=== PATIENT | male | born 1970 ===

== ENCOUNTER 2020-02-07 07:02 | Outpatient (REF) | payer OTHER, SELFPAY ==
[2020-02-07 07:23] LABS: COVID-19 Test Negative (Negative)
== END 2020-02-07 07:03 | disposition home or self-care (01) ==
LOC: HO.LAB 07:02
PROVIDERS: Visit Provider Internal Medicine
DX: Z20.828 Contact with and (suspected) exposure to other viral communicable diseases (principal)
CPT/HCPCS: 87635

== ENCOUNTER 2020-03-18 07:04 | Outpatient (REF) | payer OTHER, SELFPAY ==
[2020-03-18 07:25] LABS: COVID-19 Test Negative (Negative); IDNOW Serial# 55D5AD1C
== END 2020-03-18 07:05 | disposition home or self-care (01) ==
LOC: HO.EMPCOV 07:04
PROVIDERS: Visit Provider Internal Medicine
DX: Z20.828 Contact with and (suspected) exposure to other viral communicable diseases (principal)
CPT/HCPCS: 87635; C9803

== ENCOUNTER 2020-03-21 07:03 | Outpatient (REF) | payer OTHER, SELFPAY ==
[2020-03-21 08:48] LABS: COVID-19 Test Negative (Negative)
== END 2020-03-21 07:04 | disposition home or self-care (01) ==
LOC: HO.EMPCOV 07:03
PROVIDERS: Visit Provider Internal Medicine
DX: Z20.828 Contact with and (suspected) exposure to other viral communicable diseases (principal)
CPT/HCPCS: 87635; C9803

== ENCOUNTER 2020-03-26 06:55 | Outpatient (REF) | payer OTHER, SELFPAY ==
[2020-03-26 07:39] LABS: COVID-19 Test Negative (Negative); IDNOW Serial# 55D5AD1C
== END 2020-03-26 06:56 | disposition home or self-care (01) ==
LOC: HO.EMPCOV 06:55
PROVIDERS: Visit Provider Internal Medicine
DX: Z20.828 Contact with and (suspected) exposure to other viral communicable diseases (principal)
CPT/HCPCS: 87635; C9803

== ENCOUNTER 2020-08-14 06:13 | Outpatient (REF) | payer OTHER, SELFPAY ==
[2020-08-14 08:14] LABS: MANUAL DIFF FLAG NO
[2020-08-14 08:26] LABS: Basophils Absolute Auto 0.1 X10*3/uL (0.0-0.2); Basophils Percent Auto 0.6 % (0-2); Eosinophils Absolute Auto 0.2 X10*3/uL (0.0-0.4); Eosinophils Percent Auto 2.2 % (0-4); Hematocrit 43.5 % (42-52); Hemoglobin 14.3 g/dl (14.0-18.0); Imm Gran Abs Auto 0.03 X10*3/uL (0.00-0.03); Imm Gran Pct Auto 0.4 % (0.0-0.4); Lymphocytes Absolute Auto 1.9 X10*3/uL (1.2-4.9); Lymphocytes Percent Auto 23.7 % (20-40); Mean Corpuscular HGB Conc 32.9 g/dl (31.0-36.0); Mean Corpuscular Hemoglobin 29.4 pg (27.0-33.0); Mean Corpuscular Volume 89.5 fL (80-98); Mean Platelet Volume 9.6 fL (9.4-12.4); Monocytes Absolute Auto 0.6 X10*3/uL (0.1-1.2); Monocytes Percent Auto 7.6 % (2-11); Neutrophils Absolute Auto 5.3 X10*3/uL (2.0-8.3); Neutrophils Percent Auto 65.5 % (45-73); Platelet Count 278 X10*3/uL (160-400); Red Blood Count 4.86 X10*6/uL (4.60-5.80); Red Cell Distribution Width 12.3 % (11.0-16.0); White Blood Count 8.2 X10*3/uL (4.8-10.8)
[2020-08-14 08:41] LABS: Alanine Aminotransferase 26 U/L (0-40); Albumin Level 4.3 g/dL (3.5-5.0); Alkaline Phosphatase 100 U/L (39-117); Anion Gap 15 (12-20); Aspartate Amino Transferase 18 U/L (5-37); Blood Urea Nitrogen 20 mg/dL (9-16); Calcium 9.4 mg/dL (8.4-10.2); Carbon Dioxide 26 mmol/L (22-29); Chloride 101 mmol/L (96-108); Cholesterol 210 mg/dL; Estimated Glomerular Filt Rate > 60; Glucose Random 104 mg/dL (60-115); HDL Cholesterol 38 mg/dL; LDL Cholesterol Calculated 145 mg/dl; Potassium 4.3 mmol/L (3.3-5.1); Sodium 138 mmol/L (135-145); Total Protein 7.4 g/dL (6.5-8.0); Triglycerides 136 mg/dL
[2020-08-14 08:57] LABS: ~HepC Num1 0.07 S/CO (0.00-0.79); ~Hepatitis C Antibody Nonreactive (Nonreactive)
[2020-08-14 09:03] LABS: TSH reflex Free T4 2.11 uIU/mL (0.32-4.0)
== END 2020-08-14 06:14 | disposition home or self-care (01) ==
LOC: HO.LAB 06:13
PROVIDERS: PCP Hospitalist; Visit Provider Hospitalist
DX: Z00.00 Encounter for general adult medical examination without abnormal findings (principal); Z11.59 Encounter for screening for other viral diseases
CPT/HCPCS: 36415; 80053; 80061; 84443; 85025; 86803

== ENCOUNTER 2020-11-06 12:49 | Outpatient (REF) | payer OTHER, SELFPAY ==
--- NOTE | ~2020-11-06 | US_ITS ---
EXAMINATION: US SCROTUM CLINICAL INFORMATION: Right-sided pain. COMPARISON: None TECHNIQUE: A sonogram of the scrotum was performed assessing salcedo-scale appearance and color Doppler flow. Spectral Doppler analysis of the arterial and venous flow were performed in the testes bilaterally. FINDINGS: RIGHT: Right testicle measures 3.9 x 2.2 x 2.2 cm, volume 10 mL. No focal testicular parenchymal lesions are visualized. Spectral Doppler analysis of the arterial and venous flow is normal in the right testis. The right epididymis is enlarged and slightly hypervascular questionable for epididymitis. There is a small right hydrocele. There is a 6 x 5 x 7 mm epididymal head cyst. LEFT: Left testicle measures 3.5 x 1.8 x 2.5 cm, volume 8 mL. No focal testicular parenchymal lesions are visualized. Spectral Doppler analysis of the arterial and venous flow is normal in the left testis. Left epididymal head is normal in size. There is a 4 mm epididymal head cyst. No left hydrocele or varicocele is seen. Left epididymal Doppler flow is normal. US/US scrotum IMPRESSION: Enlarged hypervascular right epididymis suggestive of epididymitis. Small right hydrocele. Small bilateral epididymal head cysts.
== END 2020-11-06 12:50 | disposition home or self-care (01) ==
LOC: HO.HMGCX 12:49
PROVIDERS: PCP Hospitalist; Visit Provider Family Medicine
DX: N50.82 Scrotal pain (principal)
CPT/HCPCS: 76870

== ENCOUNTER 2021-09-26 23:23 | Outpatient (REF) | payer OTHER, SELFPAY ==
[2021-09-26 23:54] LABS: COVID-19 Test Negative (Negative); IDNOW Serial# 55D5AD1C
== END 2021-09-26 23:24 | disposition home or self-care (01) ==
LOC: HO.LAB 23:23
PROVIDERS: Visit Provider Internal Medicine
DX: Z20.822 Contact with and (suspected) exposure to COVID-19 (principal)
CPT/HCPCS: 87635

== ENCOUNTER 2022-03-15 14:14 | Outpatient (REF) | payer OTHER, SELFPAY ==
[2022-03-15 15:05] LABS: Influenza A PCR POSITIVE (Negative); Influenza B PCR NEGATIVE (Negative); Resp Syncy Virus RNA Qual PCR NEGATIVE (Negative); SARS COV2 PCR INHOUSE NEGATIVE (Negative)
== END 2022-03-15 14:15 | disposition home or self-care (01) ==
LOC: HO.LNP 14:14
PROVIDERS: Visit Provider Nurse Practitioner Family
DX: Z20.822 Contact with and (suspected) exposure to COVID-19 (principal); R09.89 Other specified symptoms and signs involving the circulatory and respiratory systems
CPT/HCPCS: 0241U

== ENCOUNTER → 2022-05-03 13:19 | Outpatient (BNVA) | payer OTHER, SELFPAY | PROVIDERS: PCP Physician Assistant; Referring Provider Physician Assistant; Visit Provider Internal Medicine Cardiovascular Disease | DX: I48.0 Paroxysmal atrial fibrillation (principal); I10 Essential (primary) hypertension | CPT/HCPCS: 93005 ==

== ENCOUNTER → 2022-05-09 07:58 | Outpatient (REF) | payer OTHER, SELFPAY ==
--- NOTE | 2022-05-09 08:01 | CA_ITS ---
Transthoracic Echocardiogram Amended Patient (Last, First, Middle): Emerson Perales T Gender: Male Date of : 1970 Age: 52 Procedure Date: 05/09/2022 Procedure Type: Transthoracic Echocardiogram Location: OP Height: 170.18 cm Weight: 158.76 kg BSA: 2.57 m2 Heart Rate: 67 bpm BP: 140 / 90 mmHg Division Controller: NEO Referring MD: John Schulte MD Symptoms: I48.0 - Paroxysmal atrial fibrillation Study Quality: Technically Difficult ECG Rhythm: Sinus Conclusions: - The left ventricular systolic function is normal. The calculated ejection fraction is 61% by biplane method. - There is moderately increased left ventricular wall thickness. - No obvious valvular pathology seen on this study. Findings Procedure Information Contrast agent, definity, is being given per protocol without apparent complications. Left Ventricle Normal left ventricular cavity size. There is moderately increased left ventricular wall thickness. The left ventricular systolic function is normal. The calculated ejection fraction is 61% by biplane method. There is no evidence of regional wall motion abnormalities. Diastolic function is normal for age. Right Ventricle Normal right ventricular cavity size and systolic function. Atria Both atria are normal in size. Aortic Valve There is a normal trileaflet aortic valve. There is no aortic valve stenosis. There is no aortic valve regurgitation. Mitral Valve The mitral valve appears normal. There is no mitral valve regurgitation. There is no mitral valve stenosis. Pulmonic Valve The pulmonic valve is likely normal. Tricuspid Valve There is trace tricuspid valve regurgitation. There is no evidence of pulmonary hypertension. Great Vessels The aortic annulus and asc aorta are normal in size. Venous The inferior vena cava is normal in size and collapses greater than 50% with inspiration. Pericardium/Pleural There is no evidence of pericardial effusion. Prior Study Comparison No significant change compared to prior study dated: 03/21/2009. Recommendations, Care & Conclusions No obvious valvular pathology seen on this study. Measurements 2D Linear Measurements IVSd: 1.35 0.6-0.9/0.6-1.0 cm LVIDd: 4.65 3.9-5.3/4.2-5.9 cm LVIDd Index: 1.81 2.4-3.2/2.2-3.1 cm/m2 LVIDs: 2.27 2.0-3.6 cm LVPWd: 1.34 0.7-1.1 cm LA Diam: 3.70 2.7-3.8/3.0-4.0 cm LAIDs Index: 1.44 1.5-2.3 cm/m2 LV Mass: 306.70 67-162/88-224 g LV Mass Index: 119.34 43-95/49-115 g/m2 LVOT Diam: 2.10 3.0+(-)1.3 cm 2D Volumes LA Vol: 21.20 2D Systolic Function EF 4C: 65.30 >55% EF 2C: 55.50 >55% EF BiP: 61.30 >55% Mitral Valve MV Pk E: 1.34 MV PK A: 1.11 MV Decel Time: 198.00 E/A: 1.20 E'Lateral: 7.40 E'Medial: 9.25 E/E' Med: 14.50 E/E' Lat: 18.10 PHT: 58.00 MVA PHT: 3.79 Decel Burke: 6.76 Aortic Valve AoV Pk [place]: 1.78 AoV Mn [place]: 1.28 AoV VTI: 0.39 AoV Pk Grad: 13.00 Aov Mn Grad: 7.00 LISA Cont.VTI: 2.72 LVOT LVOT Pk [place]: 1.38 LVOT Mn [place]: 0.99 LVOT VTI: 0.31 LVOT Pk Grad: 8.00 LVOT Mn Grad: 4.00 LVOT Diam: 2.10 LVOT Area: 3.46 Diastolic Function MV Pk E: 1.34 MV Pk A: 1.11 E/A: 1.20 E'Medial: 9.25 E/E' Med: 14.50 E' Laterial: 7.40 E/E' Lat: 18.10 Right Ventricle TAPSE (mm): 23.60 TVS' Ever[place]: 15.10 Tricuspid Valve RA Press: 3.00 Great Vessels Aorta Sinus of Valsalva: 3.10 2.0-3.5 cm Ao Asc: 3.10 2.1-3.4 cm Pulmonary Valve PV Pk [place]: 1.07 Peak PV Grad: 5.00 Updated in Other Vendor System with Status of Final Jai Pruett MD electronically signed on 05/09/2022 11:20:59 AM with status of Final
== END ==
LOC: HO.CARD 07:58
PROVIDERS: PCP Physician Assistant; Visit Provider Internal Medicine Cardiovascular Disease
DX: I48.0 Paroxysmal atrial fibrillation (principal)
CPT/HCPCS: 93306; Q9957

== ENCOUNTER 2022-05-10 06:57 | Outpatient (REF) | payer OTHER, SELFPAY ==
[2022-05-10 08:00] LABS: Cholesterol 214 mg/dL; HDL Cholesterol 41 mg/dL; LDL Cholesterol Calculated 154 mg/dl; Triglycerides 96 mg/dL
[2022-05-12 18:28] LABS: CRP High Sensitivity 7.4 mg/L
== END 2022-05-10 06:58 | disposition home or self-care (01) ==
LOC: HO.LAB 06:57
PROVIDERS: PCP Physician Assistant; Visit Provider Internal Medicine Cardiovascular Disease
DX: I25.10 Atherosclerotic heart disease of native coronary artery without angina pectoris (principal); E78.5 Hyperlipidemia, unspecified; I10 Essential (primary) hypertension
CPT/HCPCS: 36415; 80061; 86141

== ENCOUNTER → 2022-05-18 08:55 | Outpatient (BNVA) | payer OTHER, SELFPAY | PROVIDERS: PCP Physician Assistant; Visit Provider Physician Assistant | DX: Z13.89 Encounter for screening for other disorder (principal) ==

== ENCOUNTER 2022-05-18 09:50 | Outpatient (REF) | payer OTHER, SELFPAY ==
[2022-05-18 11:00] LABS: MANUAL DIFF FLAG NO
[2022-05-18 11:05] LABS: Basophils Absolute Auto 0.1 X10*3/uL (0.0-0.2); Basophils Percent Auto 0.7 % (0-2); Eosinophils Absolute Auto 0.2 X10*3/uL (0.0-0.4); Eosinophils Percent Auto 2.2 % (0-4); Hematocrit 44.4 % (42.0-52.0); Hemoglobin 14.7 g/dl (14.0-18.0); Imm Gran Abs Auto 0.02 X10*3/uL (0.00-0.03); Imm Gran Pct Auto 0.2 % (0.0-0.4); Lymphocytes Absolute Auto 1.8 X10*3/uL (1.2-4.9); Lymphocytes Percent Auto 22.4 % (20-40); Mean Corpuscular HGB Conc 33.1 g/dl (31.0-36.0); Mean Corpuscular Hemoglobin 30.1 pg (27.0-33.0); Mean Corpuscular Volume 90.8 fL (80.0-98.0); Mean Platelet Volume 9.4 fL (9.4-12.4); Monocytes Absolute Auto 0.8 X10*3/uL (0.1-1.2); Monocytes Percent Auto 10.2 % (2-11); Neutrophils Absolute Auto 5.3 x10*3/uL (2.0-8.3); Neutrophils Percent Auto 64.3 % (45-73); Platelet Count 260 X10*3/uL (160-400); Red Blood Count 4.89 X10*6/uL (4.60-5.80); Red Cell Distribution Width 12.7 % (11.0-16.0); White Blood Count 8.2 X10*3/uL (4.8-10.8)
[2022-05-18 11:39] LABS: Alanine Aminotransferase 33 U/L (0-40); Albumin Level 4.3 g/dL (3.5-5.0); Alkaline Phosphatase 118 U/L (39-117); Anion Gap 11 (12-20); Aspartate Amino Transferase 19 U/L (5-37); Bilirubin Total 0.9 mg/dL (0.0-1.0); Blood Urea Nitrogen 21 mg/dL (9-16); Calcium 9.5 mg/dL (8.4-10.2); Carbon Dioxide 28 mmol/L (22-29); Chloride 103 mmol/L (96-108); Estimated Glomerular Filt Rate > 60; Glucose Random 115 mg/dL (60-115); Potassium 4.2 mmol/L (3.3-5.1); Sodium 138 mmol/L (135-145); Total Protein 7.4 g/dL (6.5-8.0)
== END 2022-05-18 09:51 | disposition home or self-care (01) ==
LOC: HO.WFDLDS 09:50
PROVIDERS: Visit Provider Physician Assistant
DX: Z01.818 Encounter for other preprocedural examination (principal); K58.9 Irritable bowel syndrome, unspecified; I48.0 Paroxysmal atrial fibrillation; G47.33 Obstructive sleep apnea (adult) (pediatric)
CPT/HCPCS: 36415; 80053; 84443; 85025

== ENCOUNTER → 2022-06-16 13:42 | Outpatient (BNVA) | payer OTHER, SELFPAY | PROVIDERS: PCP Physician Assistant; Referring Provider Physician Assistant; Visit Provider Internal Medicine Cardiovascular Disease | DX: Z13.89 Encounter for screening for other disorder (principal) ==

== ENCOUNTER 2022-06-21 06:11 | Day surgery (SDC) | payer OTHER, SELFPAY ==
[2022-06-14 14:11] VITALS: BMI 54.0
[2022-06-21 06:31] VITALS: BP 151/96; PULSE 78; RESP 18; TEMP 36.2; O2SAT 97
--- NOTE | 2022-06-21 06:32 | MHC.SHP ---
Pre-Procedural Eval Section A Date of Service: 06/21/22 Section B Chief Complaint: screening Relevant Family History (Specify if Yes): No Relevant Social History: Alcohol Use (social) Present Medications: see Short Stay Collaborative assessment Medical History: Significant History (History of COVID-19 HTN (hypertension) Obesity Obstructive sleep apnea Paroxysmal atrial fibrillation) History of Previous Operations: No relevant previous surgery Allergies: Allergies Allergy/AdvReac Type Severity Reaction Status Date / Time Penicillins Allergy Severe urticaria Verified 05/18/22 09:35 cephalexin [From Keflex] Allergy Intermediate Hives Verified 06/14/22 14:10 Review of Systems Sugical H&P ROS: Negative: Constitution, Cardiovascular, Respiratory, Neurological, Psychiatric, Hem-Onc, Allergic/Immunologic, Gastrointestinal, Genitourinary, Musculoskeletal, Integumentary, Endocrine and Eyes/Ears/Nose/Throat Exam Surgical H&P Exam: Normal: HEENT, Normal: Heart, Normal: Lungs, Normal: Extremities, Normal: Abdomen, Normal: Skin and Normal: Neurological Plan Diagnosis/Plan: Unchanged I have reviewed the history and physical and performed a pertinent physical examination on my patient. No changes have occurred unless specified. Time Spent With Patient Time: Total time managing care of this patient today ____ minutes.
[2022-06-21] MEDS: Lactated Ringers 1,000 ML 50 ML IVCONT (06:46)
[2022-06-21 07:14] VITALS: BMI 54.8
--- NOTE | 2022-06-21 08:10 | W.PM.OPN ---
Operative Note Operative Note Date of Service: 06/21/22 Narrative: Operative Information Procedure Description: Colonoscopy Indication: screening Anesthesia: MAC COLONOSCOPY Instrument: Olympus variable stiffness ADULT scope 190L Colonoscopy Monitoring: Vital signs and clinical assessment, continuous EKG monitoring, Pulse oximetry, Carbon Dioxide monitoring and blood pressure monitoring were done throughout the procedure. Colon withdrawal time was 10 minutes. Procedure: The patient was placed in the left lateral decubitis position and pre-procedure medications were administered. After a digital rectal examination of the ano-rectum, the video colonoscope was inserted into the rectum and advanced through the colon to the cecum/TI. The colonoscope was slowly withdrawn in a retrograde panoramic fashion and the colon mucosa was carefully examined including a retroflexed view of the rectum. Findings and interventions are described below. Procedure Difficulty: easy Findings: Terminal Ileum-not intubated Cecum:normal Ascending Colon: normal Transverse Colon -normal Descending Colon: x 2 sessile polyps, adenomatous appearing by kudo pattern and measured 10 mm each, removed with cold snare Sigmoid Colon: mild diverticulosis Rectum: Retroflexion with small internal hemorrhoids, grade I Anorectum - normal Colon preparation: Langford Bowel Preparation Scale Right colon; 3 Transverse colon: 3 Left colon; 3 (0 = Unprepared colon segment with mucosa not seen due to solid stool that cannot be cleared. 1 = Portion of mucosa of the colon segment seen, but other areas of the colon segment not well seen due to staining, residual stool and/or opaque liquid. 2 = Minor amount of residual staining, small fragments of stool and/or opaque liquid, but mucosa of colon segment seen well. 3 = Entire mucosa of colon segment seen well with no residual staining, small fragments of stool or opaque liquid) Impression and Post Procedure Diagnosis: polyps internal hemorrhoids diverticular disease Plan: High fiber diet leaflet Avoid straining at stool, epsom salts and sitz bath, anusol supps or cream Repeat Colonoscopy in 5 years due to polyps or earlier if clinically indicated Above findings were reviewed with the patient and relevant handouts were provided if indicated.
[2022-06-21 08:15] VITALS: BP 158/80; PULSE 82; RESP 18; TEMP 36.6; O2SAT 96
[2022-06-21 08:30] VITALS: BP 129/66; PULSE 70; RESP 18; TEMP 36.3; O2SAT 98
--- NOTE | 2022-06-21 08:53 | P.CONAN_ITS ---
HPI - Anesthesia Eval Consult details Narrative: screening [facility] Active Problems Active Problems: All Active Problems (Updated 06/16/22 @ 14:09 by John Schulte MD) Encounter for screening colonoscopy (Acute) Obstructive sleep apnea (Acute) Obesity (Acute) HTN (hypertension) (Acute) Paroxysmal atrial fibrillation (Acute) Past Medical History Medical History History of COVID-19 HTN (hypertension) Obesity Obstructive sleep apnea Paroxysmal atrial fibrillation Family History Family History Father CAD (coronary artery disease) HTN (hypertension) Hyperlipidemia Paternal Grandfather CAD (coronary artery disease) HTN (hypertension) Hyperlipidemia Family history of problems with anesthesia: No Surgical History Surgical History Hx of foot surgery History of Problems with Anesthesia: No Social History Social History Household Members: Family Are you a primary critical care unit nurse to a significant other at home: No Do you presently have visiting nurse or other home services: No Alcohol intake: current Alcohol intake frequency: 3 or more drinks per day Alcohol type: beer Patient Tobacco Use Status: Former Tobacco user Quit Date: years ago Tobacco use type: Cigarette Years Smoked: 2 months Use of substances other than those prescribed or required for medical reasons: Yes Substance Use Type: Marijuana Substance Use Frequency: Weekly Have you been hit, kicked, punched, or otherwise hurt by someone within the past year? If so, by whom?: No Are you DNR?: No Advance Directives: No Advance Directives Information Provided: Yes (brochure mailed) Advance Directives on File: No Recently lost weight without trying: No Eating poorly because of decreased appetite: No Nutrition Risks: No Nutritional Risk Poor oral hygiene: No Meds Allergies Allergy/AdvReac Type Severity Reaction Status Date / Time Penicillins Allergy Severe urticaria Verified 05/18/22 09:35 cephalexin [From Keflex] Allergy Intermediate Hives Verified 06/14/22 14:10 Active Medications: Current Medications Lactated Ringer's (Lr) 1,000 mls @ 50 mls/hr IVCONT .Q20H MAREK Last Admin: 06/21/22 06:46 Dose: 50 mls/hr Home Medications Medication Instructions Recorded Confirmed Last Taken Type alprazolam 1 mg tablet 1 mg PO DAILY PRN Anxiety 03/15/22 06/16/22 06/21/22 History amlodipine 5 mg-benazepril 10 mg 1 cap PO DAILY 05/03/22 06/16/22 Unknown History capsule ibuprofen 200 mg tablet 400 mg PO Q6H PRN Pain 06/14/22 06/16/22 06/16/22 History Exam Exam Date and Time: June 21, 2022 0853 Height,Weight and Vital Signs: Height 5 ft 7 in Weight 158.757 kg Last Vital Signs Temp 97.4 F 06/21/22 08:30 Pulse 70 06/21/22 08:30 Resp 18 06/21/22 08:30 BP 129/66 06/21/22 08:30 Pulse Ox 98 06/21/22 08:30 O2 Del Method 06/21/22 08:30 Airway Mallampati Class: III (Poor visualization) Neck ROM: Full Heart: rr Lungs: cta Assessment and Plan Final Anesthetic Review Family History of Problems with Anesthesia: No History of Problems with Anesthesia: No
== END 2022-06-21 08:55 | disposition home or self-care (01) ==
PROVIDERS: PCP Physician Assistant; Visit Provider Internal Medicine Gastroenterology
PROC: 0DJD8ZZ Inspection of Lower Intestinal Tract, Via Natural or Artificial Opening Endoscopic (ICD-10-PCS; CPT 45378; principal; 2022-06-21 07:30)
DX: Z12.11 Encounter for screening for malignant neoplasm of colon (principal); D12.4 Benign neoplasm of descending colon; K57.30 Diverticulosis of large intestine without perforation or abscess without bleeding; I48.0 Paroxysmal atrial fibrillation
CPT/HCPCS: 45385; 88305

== ENCOUNTER → 2022-07-05 07:34 | Outpatient (BNVA) | payer OTHER, SELFPAY | PROVIDERS: PCP Physician Assistant; Visit Provider Physician Assistant | DX: Z13.89 Encounter for screening for other disorder (principal) ==

== ENCOUNTER 2023-06-22 14:47 | Outpatient (AMB) | payer OTHER, SELFPAY ==
[2023-06-22 14:48] VITALS: BP 136/84; PULSE 92; BMI 62.1
--- NOTE | 2023-06-22 14:48 | MHC.OFFVIS ---
Intake Vital Signs 06/22/23 14:48 Height 5 ft 7 in Weight 396 lb 13.313 oz BMI 62.1 BP 136/84 Blood Pressure Location Lt brachial Position Sitting Pulse 92 Intake Visit Reasons: 1 yr s/p echo Intake Note: 1 year follow-up after echo c/o sob and leg edema post covid about 1 month ago Mental Health Worker Required: No Allergies Penicillins Allergy (Severe, Verified 07/05/22 07:37) urticaria cephalexin [From Keflex] Allergy (Intermediate, Verified 07/05/22 07:37) Hives Medication List - Last Reconciled 06/22/23 by John Schulte MD alprazolam 1 mg PO DAILY PRN amlodipine-benazepril 5-10 mg 1 cap PO DAILY ibuprofen 400 mg PO Q6H PRN rosuvastatin 20 mg PO DAILY HPI HPI Comments History of Present Illness Details Emerson comes for follow-up. More recently he has been having increased symptoms of palpitations especially under stressful situations. He has been noticing mostly skipped heartbeats. Although he thinks there is also fluttering and thinks that he might have recurrent atrial fibrillation. He has not had monitoring done. 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 He said his systolic blood pressure always between 130 and 140. Uses CPAP. Denies any exertional chest pain. No shortness of breath, orthopnea, PND. Takes all his medications regularly including the statin therapy. No recent lipid panel. [facility] Medical History History of COVID-19 Obstructive sleep apnea Obesity HTN (hypertension) Paroxysmal atrial fibrillation Surgical History Hx of colonoscopy Hx of foot surgery Family History Father CAD (coronary artery disease) HTN (hypertension) Hyperlipidemia Paternal Grandfather CAD (coronary artery disease) HTN (hypertension) Hyperlipidemia Social History Household Members: Family Are you a primary early breastfeeding care specialist to a significant other at home: No Do you presently have visiting nurse or other home services: No Alcohol intake: current Alcohol intake frequency: 3 or more drinks per day Alcohol type: beer Patient Tobacco Use Status: Former Tobacco user Quit Date: years ago Tobacco use type: Cigarette Years Smoked: 2 months Substance Use Type: Marijuana Review of Systems Const Denies chills, Denies fatigue, Denies fever(s), Denies frequent falls, Denies weakness, Denies weight gain and Denies weight loss ENT Denies dizziness Card Denies chest pain, Denies leg edema, Denies lightheadedness, Denies palpitations, Denies dyspnea, Denies dyspnea on exertion, Denies orthopnea and Denies other (loss of consciousness) Resp Denies cough, Denies dyspnea and Denies dyspnea on exertion GI Denies hematochezia and Denies change in stool character Musc Denies abnormal gait, Denies muscle weakness, Denies numbness, Denies radiating pain into limb and Denies tingling Neuro Denies Abnormal speech present, Denies abnormal gait, Denies dizziness, Denies frequent falls, Denies numbness, Denies tingling and Denies weakness Endo Denies fatigue and Denies palpitations Physical Exam Vital Signs: Last Vital Signs Pulse 92 06/22/23 14:48 BP 136/84 06/22/23 14:48 BMI result Body Mass Index 62.1 Const General: cooperative, comfortable, no acute distress, alert, awake and well groomed Nutritional Appearance: obese morbidly obese Orientation/consciousness: patient oriented x3 Limitations: no limitations Neck Neck: Yes trachea midline, Yes supple and Yes no JVD Resp Effort & Inspection: normal respiratory effort Auscultation: clear to auscultation bilaterally Cardio Jugular venous distension: no JVD Palpation: normal PMI Rate: regular rate Rhythm: regular rhythm Heart sounds: S1 normal heart sound present, S2 normal heart sound present, no click, no gallops, no murmurs and no rubs Neuro General: patient oriented x3 and no focal motor deficits Speech: No Abnormal speech present Extrem General: Yes no clubbing, cyanosis or edema Psych Appearance: grossly normal Office Procedures EKG Details: EKG shows normal sinus rhythm with normal EKG [id number], Complete Assessment & Plan Assessment & Plan (1) Paroxysmal atrial fibrillation: Comment: X1 in 2008-follows with Dr. Schulte-no anticoagulation Code(s): I48.0 - Paroxysmal atrial fibrillation Plan: Prior history of paroxysmal atrial fibrillation without any obvious clinical recurrence. He would recent palpitations are more suggestive extra systoles such as PACs or PVCs. Would suggest a 14 day Holter monitor to further assess for the same. There is no indication for change in therapy or addition of any antiarrhythmic drug therapy unless he has recurrent. Continue participate aggressively weight loss program which has shown to reduce recurrence of atrial fibrillation. Continue CPAP therapy. Also recommend aggressive blood pressure control. Will also obtain echocardiogram to assess LV systolic and diastolic function biatrial chamber size. (2) HTN (hypertension): Code(s): I10 - Essential (primary) hypertension Plan: Hypertension which is not currently well optimized advised to increase his current therapy amlodipine-benazepril to 10/20 mg daily basis. Continue participate in weight loss program. Continue CPAP therapy. Low-salt diet was discussed advised to monitor blood pressure at home maintain a log. Goal blood pressure less than 130/84 at all times. (3) CAD (coronary artery disease): Code(s): I25.10 - Atherosclerotic heart disease of circle coronary artery without angina pectoris Plan: CAD based of coronary calcium score with no concerning symptoms of angina at current point in time. No further workup is indicated. Continue high-intensity statin therapy. Target goal LDL less than 70 mg/dL. Advised lipid panel near future. Continue aggressive blood pressure control as above. Follow up in the clinic in 1 year's time, sooner p.r.n.. Thank you for allowing me to partake in his care Orders: Orders CA echo transthoracic complete Today I48.0 - Paroxysmal atrial fibrillation Lipid Panel Today I10 - Essential (primary) hypertension, I25.10 - Atherosclerotic heart disease of circle coronary artery without angina pectoris Basic Metabolic Panel Today I10 - Essential (primary) hypertension ECG 14 day holter monitor Today I48.0 - Paroxysmal atrial fibrillation Medications: New amlodipine-benazepril 10-20 mg 1 cap PO DAILY 30 caps 5RF I48.0 - Paroxysmal atrial fibrillation amlodipine-benazepril 10-20 mg 1 cap PO DAILY 30 caps 5RF I48.0 - Paroxysmal atrial fibrillation Refilled rosuvastatin 20 mg PO DAILY 90 tabs 2RF I10 - Essential (primary) hypertension Coding Level of Care Code Est Pt Level 4 (09106) Diagnoses Paroxysmal atrial fibrillation I48.0 HTN (hypertension) I10 CAD (coronary artery disease) I25.10 CPT Codes EKG - CPT: [id number], Complete ([id number])
== END 2023-06-22 15:11 | disposition home or self-care (01) ==
PROVIDERS: Visit Provider Internal Medicine Cardiovascular Disease
DX: I48.0 Paroxysmal atrial fibrillation (principal); I10 Essential (primary) hypertension; I25.10 Atherosclerotic heart disease of native coronary artery without angina pectoris
CPT/HCPCS: 93010; 99214

== ENCOUNTER → 2023-06-22 14:47 | Outpatient (BNVA) | payer OTHER, SELFPAY | PROVIDERS: Visit Provider Internal Medicine Cardiovascular Disease | DX: I48.0 Paroxysmal atrial fibrillation (principal); I10 Essential (primary) hypertension; I25.10 Atherosclerotic heart disease of native coronary artery without angina pectoris; Z79.899 Other long term (current) drug therapy | CPT/HCPCS: 93005 ==

== ENCOUNTER 2023-06-27 06:07 | Outpatient (REF) | payer OTHER, SELFPAY ==
[2023-06-27 07:42] LABS: Anion Gap 12 (12-20); Blood Urea Nitrogen 14 mg/dL (9-16); Carbon Dioxide 26 mmol/L (22-29); Chloride 102 mmol/L (96-108); Cholesterol 165 mg/dL (<200); Estimated Glomerular Filt Rate > 60; Glucose Random 103 mg/dL (60-115); HDL Cholesterol 41 mg/dL (>40); LDL Cholesterol Calculated 101 mg/dL (<100); Sodium 136 mmol/L (135-145); Triglycerides 118 mg/dL (<150)
== END 2023-06-27 06:08 | disposition home or self-care (01) ==
LOC: HO.LAB 06:07
PROVIDERS: PCP Physician Assistant; Visit Provider Internal Medicine Cardiovascular Disease
DX: I25.10 Atherosclerotic heart disease of native coronary artery without angina pectoris (principal); I10 Essential (primary) hypertension
CPT/HCPCS: 36415; 80048; 80061

== ENCOUNTER → 2023-07-17 13:50 | Outpatient (REF) | payer OTHER, SELFPAY ==
--- NOTE | 2023-07-17 13:54 | HM_ITS ---
* Total monitoring time 10 days. * Underlying rhythm is sinus with an average rate of 86/Min. * Rare ventricular ectopy with a burden of 0.3%. 2 couplets noted. 2 runs noted. Longest 12 beats (02:07Hrs). Monomorphic. * Rare supraventricular ectopy. * No significant pauses or AV blocks. * Patient markers used in association with sinus tachycardia and artifact. * Symptoms of flutter, lightheadedness associated with artifact on EKG. Symptom of 'tachycardia' associated with mild sinus tachycardia at 109/Min. MTDD
--- NOTE | 2023-07-17 13:54 | CA_ITS ---
Transthoracic Echocardiogram Patient (Last, First, Middle): Emerson Perales T Gender: Male Date of : 1970 Age: 53 Procedure Date: 07/17/2023 Procedure Type: Transthoracic Echocardiogram Location: OP Height: 170.18 cm Weight: 170.1 kg BSA: 2.64 m2 Heart Rate: 78 bpm BP: 130 / 75 mmHg Web Search Evaluator: NEO Referring MD: John Schulte MD Parking Lot Supervisor: John Schulte MD Symptoms: I48.0 - Paroxysmal atrial fibrillation Study Quality: Technically Difficult/Despite Contrast ECG Rhythm: Sinus Conclusions: - 1. Technically limited study despite use of contrast agent 2. Normal LV ejection fraction of 60 65% 3. Limited visualization of cardiac valves with normal cardiac valvular Doppler Findings Procedure Information Contrast agent, definity, is being given per protocol without apparent complications. Left Ventricle Normal left ventricular size, thickness, and systolic function. The visually estimated ejection fraction is between 60-65%. Spectral Doppler is indicative of a normal filling pattern. Right Ventricle The right ventricle was not well visualized. Atria The left atrium was not well visualized. Interatrial shunt cannot be excluded. The right atrium was not well visualized. Aortic Valve The aortic valve was not well visualized. There is no aortic valve stenosis. There is no aortic valve regurgitation. Mitral Valve The mitral valve was not well visualized. There is no mitral valve regurgitation. There is no mitral valve stenosis. Pulmonic Valve The pulmonic valve was not well visualized. Tricuspid Valve The tricuspid valve was not well visualized. Tricuspid regurgitation envelope is inadequate for calculation of right ventricular systolic pressure. Normal right atrial pressure. Great Vessels The aorta was not well visualized. The pulmonary artery was not well visualized. Venous The inferior vena cava is normal in size. Pericardium/Pleural The pericardium was not well visualized. Prior Study Comparison No significant change compared to prior study dated: 05/09/2022. Measurements 2D Linear Measurements IVSd: 0.93 0.6-0.9/0.6-1.0 cm LVIDd: 4.09 3.9-5.3/4.2-5.9 cm LVIDd Index: 1.55 2.4-3.2/2.2-3.1 cm/m2 LVIDs: 2.09 2.0-3.6 cm LVPWd: 1.03 0.7-1.1 cm LA Diam: 3.40 2.7-3.8/3.0-4.0 cm LAIDs Index: 1.29 1.5-2.3 cm/m2 LV Mass: 159.26 67-162/88-224 g LV Mass Index: 60.33 43-95/49-115 g/m2 LVOT Diam: 2.10 3.0+(-)1.3 cm 2D Systolic Function EF 4C: 64.10 >55% EF 2C: 60.90 >55% EF BiP: 61.80 >55% Mitral Valve MV Pk E: 1.09 MV PK A: 1.10 MV Decel Time: 272.00 E/A: 1.00 E'Lateral: 9.36 E'Medial: 10.20 E/E' Med: 10.70 E/E' Lat: 11.60 PHT: 80.00 MVA PHT: 2.75 Decel [place]: 4.01 Aortic Valve AoV Pk Everton: 1.94 AoV Mn Everton: 1.45 AoV VTI: 0.37 AoV Pk Grad: 15.00 Aov Mn Grad: 9.00 LISA Cont.VTI: 2.71 LVOT LVOT Pk [place]: 1.44 LVOT Mn [place]: 1.02 LVOT VTI: 0.29 LVOT Pk Grad: 8.00 LVOT Mn Grad: 5.00 LVOT Diam: 2.10 LVOT Area: 3.46 Diastolic Function MV Pk E: 1.09 MV Pk A: 1.10 E/A: 1.00 E'Medial: 10.20 E/E' Med: 10.70 E' Laterial: 9.36 E/E' Lat: 11.60 Right Ventricle TAPSE (mm): 25.90 TVS' Ever[place]: 14.00 Great Vessels Aorta Sinus of Valsalva: 3.30 2.0-3.5 cm Ao Asc: 3.70 2.1-3.4 cm Pulmonary Valve PV Pk Everton: 1.17 Peak PV Grad: 5.00 Updated in Other Vendor System with Status of Final John Schulte MD electronically signed on 07/18/2023 2:15:37 PM with status of Final
== END ==
LOC: HO.CARD 13:50
PROVIDERS: PCP Physician Assistant; Visit Provider Internal Medicine Cardiovascular Disease
DX: I48.0 Paroxysmal atrial fibrillation (principal)
CPT/HCPCS: 93246; 93306; Q9957

== ENCOUNTER → 2023-07-17 13:54 | Outpatient (BNV) | payer OTHER, SELFPAY | PROVIDERS: PCP Physician Assistant; Visit Provider Internal Medicine Cardiovascular Disease | DX: I49.3 Ventricular premature depolarization (principal) | CPT/HCPCS: 93248; 93306 ==

== ENCOUNTER 2023-08-08 08:22 | Outpatient (REF) | payer OTHER, SELFPAY ==
[2023-08-11 10:48] LABS: TS Negative Control Passed; TS Panel A 0; TS Panel B 0; TS Positive Control Passed; TSpotTB Negative (Negative)
== END 2023-08-08 08:23 | disposition home or self-care (01) ==
LOC: HO.LAB 08:22
PROVIDERS: PCP Physician Assistant; Visit Provider Physician Assistant
DX: Z11.1 Encounter for screening for respiratory tuberculosis (principal)
CPT/HCPCS: 36415; 86481

== ENCOUNTER 2023-09-01 12:00 | Outpatient (REF) | payer OTHER, SELFPAY ==
--- NOTE | ~2023-09-01 | XR_ITS ---
EXAMINATION: XR CHEST CLINICAL INFORMATION: Cough. COMPARISON: Erect portable view of the chest is 03/21/2009. TECHNIQUE: 3 views of the chest. FINDINGS: Evaluation somewhat limited due to lordotic positioning and low lung volumes. There is no gross pneumothorax. Cardiac silhouette borderline enlarged. Mild degenerative changes in the thoracic spine. No gross pleural effusion. Mild streaky opacities at the bilateral lung bases may represent atelectasis, although an infectious/inflammatory process should also be considered in the appropriate clinical setting. XR/XR chest 2V IMPRESSION: Mild streaky opacities at the bilateral lung bases may represent atelectasis, although an infectious/inflammatory process should also be considered in the appropriate clinical setting.
== END 2023-09-01 12:01 | disposition home or self-care (01) ==
LOC: HO.XRAY 12:00
PROVIDERS: Visit Provider Physician Assistant
DX: R05.9 Cough, unspecified (principal)
CPT/HCPCS: 71046

== ENCOUNTER 2023-10-17 06:15 | Emergency (ER) | payer OTHER, SELFPAY ==
--- NOTE | ~2023-10-17 | CT_ITS ---
EXAMINATION: CT FEMUR WITHOUT CONTRAST, RIGHT CLINICAL INFORMATION: Right posterior thigh pain status post fall. COMPARISON: None available. TECHNIQUE: Multidetector volumetric imaging was obtained through the right femur without contrast. Multiplanar reformatted images in coronal and sagittal orientations were submitted. This CT examination was performed using dose optimization techniques as appropriate, variously including the following: *Automated exposure control *Adjustment of mA and/or kV according to patient size (this includes techniques or standardized protocols for targeted exams where dose is matched to indication/reason for exam; i.e. extremities or head) *Use of iterative reconstruction technique DLP: 373 mGy-cm FINDINGS: The right hamstring tendons appear torn at the origin on the ischial tuberosity is associated laxity of the semimembranosus muscle distally. This tear appears high-grade, though residual intact fibers are difficult to exclude by CT. No additional tendon or muscle tears are identified. No fluid collections are identified. There is mild osteoarthritis in patellofemoral compartment of the right knee. Right hip joint appears relatively well-preserved. No fracture or malalignment. No aggressive osseous lesions. Imaged intrapelvic soft tissues are unremarkable aside from a small fat-containing left inguinal hernia. No adenopathy. CT/CT femur RT wo IV con IMPRESSION: 1. High-grade tear of the right hamstring tendons at the origin on the ischial tuberosity. Consider correlation with MRI for a more specific assessment. 2. No significant hematoma. 3. Mild patellofemoral compartment osteoarthritis in the right knee.
[2023-10-17 06:17] VITALS: BP 151/95; PULSE 81; RESP 20; TEMP 36.6; O2SAT 95; BMI 58.7
--- NOTE | 2023-10-17 06:32 | ED_ITS ---
HPI - Extremity Injury (Lower) General Chief Complaint: Extremity Injury, Lower Stated Complaint: fall, torn muscle possibly Time Seen by Provider: 10/17/23 06:31 Source: patient, RN notes reviewed and old records reviewed Mode of arrival: ambulatory History of Present Illness ED Provider: Kiley Bradford PA-C HPI Narrative: 53-year-old male with a past medical history of SHELIA, obesity, HTN, proximal AFib non anticoagulation, presenting to the ED complaining of right posterior upper leg pain s/p mechanical slip and fall on wet floor yesterday around 13:00. Reports doing the splits and right leg being hyper extended outwards. Denies head trauma or LOC. reports LE edema, states did not take Lasix yesterday. Denies symptoms prior to fall including lightheadedness/dizziness. Has been ambulatory with pain. Took 800 mg of Motrin at 04:00AM without relief. Denies SOB, CP, numbness, tingling, incontinence, taking anticoagulation Related Data Home Medications ?Medication ?Instructions ?Recorded ?Confirmed alprazolam 1 mg tablet 1 mg PO DAILY PRN Anxiety 03/15/22 06/22/23 ibuprofen 200 mg tablet 400 mg PO Q6H PRN Pain 06/14/22 06/22/23 Previous Rx's ?Medication ?Instructions ?Recorded amlodipine 10 mg-benazepril 20 mg 1 cap PO DAILY #30 caps 06/22/23 capsule rosuvastatin 40 mg tablet 20 mg (1/2 x 40 mg) PO DAILY #90 09/06/23 tabs acetaminophen 500 mg tablet 500 mg PO Q6H PRN fever or pain 10/17/23 (Tylenol Extra Strength) #14 tabs ibuprofen 800 mg tablet 800 mg PO Q8H PRN pain #14 tabs 10/17/23 morphine 15 mg immediate release 15 mg PO Q6H PRN pain (scale score 10/17/23 tablet 7-10) 3 days #9 tabs Allergies Allergy/AdvReac Type Severity Reaction Status Date / Time Penicillins Allergy Severe urticaria Verified 10/17/23 06:21 cephalexin [From Keflex] Allergy Intermediate Hives Verified 10/17/23 06:21 Review of Systems 2 Review of Systems: Constitutional: No Fever, No Chills ENT/Mouth: No Ear Pain, No Nasal Congestion, No sore throat, No Rhinorrhea, No Swallowing Difficulty Cardiovascular: No Chest Pain, No SOB, +LE Edema Respiratory: No Cough, No Sputum, No Wheezing Gastrointestinal: No Nausea, No Vomiting, No Abdominal pain Genitourinary: No Dysuria, No Urinary Frequency, No Hematuria, No Urinary Incontinence/retention, No Flank Pain Musculoskeletal: +joint pain, No Myalgias, No Joint Swelling Skin: No Skin Lesions, No rash Neuro: No Weakness, No Numbness, No Paresthesias Yes all other systems are reviewed and are negative Constitutional: Constitutional: Reports as per [facility] Past Medical History Attestation statement: The following information was validated with the patient. Source: old records reviewed Medical History History of COVID-19 Obstructive sleep apnea Obesity HTN (hypertension) Paroxysmal atrial fibrillation Surgical History Hx of colonoscopy Hx of foot surgery Family History Family History Father CAD (coronary artery disease) HTN (hypertension) Hyperlipidemia Paternal Grandfather CAD (coronary artery disease) HTN (hypertension) Hyperlipidemia Social History Social History Household Members: Family Are you a primary assisted living care manager to a significant other at home: No Do you presently have visiting nurse or other home services: No Alcohol intake: current Alcohol intake frequency: 3 or more drinks per day Alcohol type: beer Patient Tobacco Use Status: Former Tobacco user Tobacco use type: Cigarette Years Smoked: 2 months Substance Use Type: Marijuana Advance Directives: Yes Advance Directives Information Provided: No Advance Directives on File: No Physical Exam 2 Vital Signs: Vital Signs: Last Vital Signs Temp 98.0 F 10/17/23 10:12 Pulse 87 10/17/23 10:12 Resp 20 10/17/23 10:12 BP 142/81 H 10/17/23 10:12 Pulse Ox 97 10/17/23 10:12 O2 Del Method Room Air 10/17/23 10:12 BMI result Body Mass Index 58.7 Const: General: cooperative, healthy appearing and no acute distress O rientation/consciousness: patient oriented x3 Limitations: no limitations HEENT: Head: Yes normal to inspection and Yes atraumatic Ears: hearing grossly normal bilaterally General nose exam: Normal external nose present Face and sinus: Yes normal facial exam Eyes: General: appearance normal, both eyes and all related structures EOM: EOMs intact bilaterally Neck: Neck: Yes normal visual inspection and Yes no meningeal signs Resp: Effort & Inspection: normal respiratory effort and no respiratory distress Cardio: Rate: regular rate Heart sounds: S1 normal heart sound present and S2 normal heart sound present Peripheral pulses: dorsalis pedis present Back/Spine/Pelvis: Other: No midline cervical/thoracic/lumbar spinous tenderness/step-off or deformity Skin: Rashes: no rashes Wounds: no wounds Neuro: General: patient oriented x3, tone normal and no meningeal signs C ranial nerves: Yes CN's II-XII intact bilaterally Gait exam (Neuro): Normal gait present Extrem: Other: Right posterior thigh without notable deformity, erythema or ecchymosis, + swollen & tender to palpation. No fluctuance/induration Right knee without tenderness. Full flexion/extension limited secondary to pain. NV intact distally General: Yes pedal edema Course Course Course Narrative: -labs reassuring CT femur RT wo IV con IMPRESSION: 1. High-grade tear of the right hamstring tendons at the origin on the ischial tuberosity. Consider correlation with MRI for a more specific assessment. 2. No significant hematoma. 3. Mild patellofemoral compartment osteoarthritis in the right knee. > case discussed with orthopedic LORI Carmichael, outpatient follow-up recommended. Results discussed with patient, supplied with cane in the ED. Recommended rest, ice, compression. Results discussed with patient including worrisome signs and symptoms and strict return precautions, and when to return to the emergency department. They verbalized understanding and feel safe for discharge at this time. Medications Administered Discontinued Medications Generic Name Dose Route Start Last Admin Trade Name Freq PRN Reason Stop Dose Admin Furosemide 40 mg 10/17/23 08:11 10/17/23 08:36 Furosemide 40 Mg/4 Ml Vial IVPUSH 10/17/23 08:12 40 mg ONCE ONE Administration Protocol Morphine Sulfate 2 mg 10/17/23 08:11 10/17/23 08:38 Morphine Sulfate 2 Mg/Ml Cartridge IVPUSH 10/17/23 08:12 1 mg ONCE ONE Administration Protocol Medical Decision Making Medical Decision Making MDM Narrative: 53-year-old male with a past medical history of SHELIA, obesity, HTN, proximal AFib non anticoagulation, presenting to the ED complaining of right posterior upper leg pain s/p mechanical slip and fall on wet floor yesterday around 13:00. On exam vital signs stable, NAD, appears uncomfortable, physical exam as noted above with right posterior thigh tenderness & swelling, with bilateral LE edema. Neurovascularly intact distally. Concern for quadriceps or biceps femoris tear vs strain vs hematoma. Concern for pedal edema. Lower suspicion for CHF. Unlikely DVT/arterial compromise Plan: Labs, CT, pain control Please refer to course for remaining clinical decision making, interpretation of labs/imaging results, and discussions with consultants and/or family members. Differential Diagnosis Differential Diagnoses: The differential diagnosis associated with the presentation includes As above Admission/Observation Consideration of admission/observation: Escalation of care including admission/observation considered Lab Data MDM Lab Attestation statement: I reviewed the patient's lab results. 10/17/23 07:05 10/17/23 07:05 Labs: Lab Results 10/17/23 Range/Units 07:05 WBC 7.5 (4.8-10.8) X10*3/uL RBC 4.42 L (4.60-5.80) X10*6/uL Hgb 13.3 L (14.0-18.0) g/dl Hct 40.1 L (42.0-52.0) % MCV 90.7 (80.0-98.0) fL MCH 30.1 (27.0-33.0) pg MCHC 33.2 (31.0-36.0) g/dl RDW 13.4 (11.0-16.0) % Plt Count 216 (160-400) X10*3/uL MPV 9.2 L (9.4-12.4) fL Immature Gran % (Auto) 0.3 (0.0-0.4) % Neut % (Auto) 64.7 (45-73) % Lymph % (Auto) 21.0 (20-40) % [place] % (Auto) 11.4 H (2-11) % Eos % (Auto) 1.9 (0-4) % Baso % (Auto) 0.7 (0-2) % Lymph # (Auto) 1.6 (1.2-4.9) X10*3/uL [place] # (Auto) 0.9 (0.1-1.2) X10*3/uL Eos # (Auto) 0.1 (0.0-0.4) X10*3/uL Baso # (Auto) 0.1 (0.0-0.2) X10*3/uL Abs Immat Gran (auto) 0.02 (0.00-0.03) X10*3/uL Absolute Neuts (auto) 4.9 (2.0-8.3) x10*3/uL Absolute Nucleated RBC 0.000 (0.0-0.012) X10*3/uL Nucleated RBC % (auto) 0.0 (0.0-0.2) /100WBC Sodium 139 (135-145) mmol/L Potassium 4.3 (3.3-5.1) mmol/L Chloride 107 (96-108) mmol/L Carbon Dioxide 22 (22-29) mmol/L Anion Gap 14 (12-20) BUN 17 H (9-16) mg/dL Creatinine 0.85 (0.5-1.4) mg/dL Estim Creat Clear Calc 156.6 Estimated GFR > 60 Random Glucose 120 H (60-115) mg/dL Calcium 9.3 (8.4-10.2) mg/dL Total Bilirubin 0.7 (0.0-1.0) mg/dL Direct Bilirubin 0.2 (0.0-0.5) mg/dL AST 32 (5-37) U/L ALT 37 (0-40) U/L Alkaline Phosphatase 99 (39-117) U/L B-Natriuretic Peptide < 10 (<100) pg/mL Total Protein 7.1 (6.5-8.0) g/dL Albumin 3.7 (3.5-5.0) g/dL Independent Interpretation I performed an independent interpretation of an: CT Scan Radiology Impression Discussion of test interpretation with radiology: I have reviewed the radiologist's reading. External Record Review External record reviewed: Inpatient record, Office record, Outpatient record, Prior outpatient labs, Prior outpatient radiology, Primary care record and Outside ED record Tests considered The following testing was considered but not selected: As above Prescription Management I considered prescription management with: Pain Medication Chronic Conditions Patient?s care impacted by: Hypertension and Other (Paroxysmal AFib) Discharge Plan Discharge Clinical Impression: Hamstring tear Patient Disposition: Home, Self-Care Instructions: Hamstring Injury (ED), R.I.C.E. Treatment (ED) Additional Instructions: Your CT scan shows a high-grade tear of her right hamstring tendon Rest, ice, elevate Take ibuprofen and Tylenol Morphine as opiate pain medication, take only when pain is severe for the next [address], drink alcohol or operate machinery while taking Please follow-up with Orthopedics If symptoms persist or worsen or pain becomes unbearable return to the emergency department Prescriptions: New ibuprofen 800 mg tablet 800 mg PO Q8H PRN (Reason: pain) Qty: 14 0RF acetaminophen [Tylenol Extra Strength] 500 mg tablet 500 mg PO Q6H PRN (Reason: fever or pain) Qty: 14 0RF morphine 15 mg tablet 15 mg PO Q6H PRN (Reason: pain (scale score 7-10)) 3 Days Qty: 9 0RF Rx Instructions: Partial Fill upon patient request. No Action rosuvastatin 40 mg tablet 20 mg PO DAILY Qty: 90 0RF ibuprofen 200 mg Tablet 400 mg PO Q6H PRN (Reason: Pain) alprazolam 1 mg tablet 1 mg PO DAILY PRN (Reason: Anxiety) amlodipine-benazepril 10-20 mg capsule 1 cap PO DAILY Qty: 30 5RF Referrals: [facility] [place] Orthopedic Surgeons [Provider Group] Stand Alone Forms: Work/School Release Interventions: ED Discharge Assessment Last Done: 10/17/23 10:12 Discharge Date/Time: 10/17/23 10:22 Print Language: Venezuelan
[2023-10-17 06:34] VITALS: BP 132/56; PULSE 87; RESP 15; TEMP 36.7; O2SAT 98
[2023-10-17 07:09] LABS: MANUAL DIFF FLAG NO
[2023-10-17 07:21] LABS: Basophils Absolute Auto 0.1 X10*3/uL (0.0-0.2); Basophils Percent Auto 0.7 % (0-2); Eosinophils Absolute Auto 0.1 X10*3/uL (0.0-0.4); Eosinophils Percent Auto 1.9 % (0-4); Hematocrit 40.1 % (42.0-52.0); Hemoglobin 13.3 g/dl (14.0-18.0); Imm Gran Abs Auto 0.02 X10*3/uL (0.00-0.03); Imm Gran Pct Auto 0.3 % (0.0-0.4); Lymphocytes Absolute Auto 1.6 X10*3/uL (1.2-4.9); Mean Corpuscular HGB Conc 33.2 g/dl (31.0-36.0); Mean Corpuscular Hemoglobin 30.1 pg (27.0-33.0); Mean Corpuscular Volume 90.7 fL (80.0-98.0); Mean Platelet Volume 9.2 fL (9.4-12.4); Monocytes Absolute Auto 0.9 X10*3/uL (0.1-1.2); Monocytes Percent Auto 11.4 % (2-11); Neutrophils Absolute Auto 4.9 x10*3/uL (2.0-8.3); Neutrophils Percent Auto 64.7 % (45-73); Platelet Count 216 X10*3/uL (160-400); Red Blood Count 4.42 X10*6/uL (4.60-5.80); Red Cell Distribution Width 13.4 % (11.0-16.0); White Blood Count 7.5 X10*3/uL (4.8-10.8)
[2023-10-17 07:28] LABS: Alanine Aminotransferase 37 U/L (0-40); Albumin Level 3.7 g/dL (3.5-5.0); Alkaline Phosphatase 99 U/L (39-117); Anion Gap 14 (12-20); Aspartate Amino Transferase 32 U/L (5-37); Bilirubin Direct 0.2 mg/dL (0.0-0.5); Bilirubin Total 0.7 mg/dL (0.0-1.0); Blood Urea Nitrogen 17 mg/dL (9-16); Calcium 9.3 mg/dL (8.4-10.2); Carbon Dioxide 22 mmol/L (22-29); Chloride 107 mmol/L (96-108); Creatinine Clr Calc Pharmacy 156.6; Estimated Glomerular Filt Rate > 60; Glucose Random 120 mg/dL (60-115); Potassium 4.3 mmol/L (3.3-5.1); Sodium 139 mmol/L (135-145); Total Protein 7.1 g/dL (6.5-8.0)
[2023-10-17 07:33] LABS: B Type Natriuretic Peptide < 10 pg/mL (<100)
--- NOTE | 2023-10-17 08:15 | PC.NURSE ---
a&ox4. vss and up to date. pt presents to the ED s/p fall in the kitchen after slipping on water. pt denies feeling dizzy/lightheaded prior to the fall. pt verbalizes landing on left knee and his RLE hyperextended outwards. pt presents c/o posterior knee pain that radiates to buttocks. denies any numbness/tingling. pt does not want pain medication at this time. no sob/wob noted. respirations even/unlabored. plan of care ongoing. call keane placed within reach.
--- NOTE | 2023-10-17 08:25 | PC.NURSE ---
CT being completed at this time.
[2023-10-17] MEDS: Furosemide 40 MG/4 ML VIAL IVPUSH (08:36)
[2023-10-17] MEDS: Morphine Sulfate 2 MG/ML CARTRIDGE IVPUSH (08:38)
--- NOTE | 2023-10-17 08:46 | PC.NURSE ---
pt verbalizing 10/24 RLE/hip pain at this time. pt medicated per provider order. effectiveness pending. 2mg morphine ordered by LORI Cao - pt requesting 1mg of morphine to be administered. documented in JUN. medication wasted in pyxis.
[2023-10-17 09:58] VITALS: BP 142/81; PULSE 87; RESP 20; O2SAT 97
[2023-10-17 10:12] VITALS: BP 142/81; PULSE 87; RESP 20; TEMP 36.7; O2SAT 97
== END 2023-10-17 10:22 | disposition home or self-care (01) ==
PROVIDERS: Physician Assistant; Emergency Provider Emergency Medicine; PCP Physician Assistant
DX: S76.311A Strain of muscle, fascia and tendon of the posterior muscle group at thigh level, right thigh, initial encounter (principal); W01.0XXA Fall on same level from slipping, tripping and stumbling without subsequent striking against object, initial encounter; Y93.89 Activity, other specified; Y92.9 Unspecified place or not applicable; Y99.9 Unspecified external cause status; M79.604 Pain in right leg; I10 Essential (primary) hypertension; I48.0 Paroxysmal atrial fibrillation; E66.9 Obesity, unspecified; Z68.43 Body mass index [BMI] 50.0-59.9, adult
CPT/HCPCS: 36415; 73700; 80048; 80076; 83880; 85025; 96374; 96375; 99283; 99284; J1940; J2270

== ENCOUNTER 2023-11-03 14:44 | Outpatient (AMB) | payer OTHER, SELFPAY ==
--- NOTE | 2023-11-03 14:50 | MHC.OFFVIS ---
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 Pt states on 10/16/23 he slipped and fell in the kitchen and felt a pop. Pt states he is still having pain but only positionally. Pt states he has been using ice, and tylenol for relief. Pt states the pain is mostly getting in and out of the car. 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 He reports he slipped and fell in the kitchen and felt a pop. He currently states he has pain in his leg with certain positions that gets aggravated with getting in and out of the car. He has been using ice and Tylenol with benefits. [facility] Medical History History of COVID-19 Obstructive sleep apnea Obesity HTN (hypertension) Paroxysmal atrial fibrillation Surgical History Hx of colonoscopy Hx of foot surgery Family History Father CAD (coronary artery disease) HTN (hypertension) Hyperlipidemia Paternal Grandfather CAD (coronary artery disease) HTN (hypertension) Hyperlipidemia Social History Household Members: Family Are you a primary cardiac care unit nurse to a significant other at home: No Do you presently have visiting nurse or other home services: No Alcohol intake: current Alcohol intake frequency: 3 or more drinks per day Alcohol type: beer Patient Tobacco Use Status: Former Tobacco user Tobacco use type: Cigarette Years Smoked: 2 months Substance Use Type: Marijuana Review of Systems Const All systems reviewed & are unremarkable except as noted in HPI and below Physical Exam Const General: cooperative, healthy appearing, comfortable, no acute distress, well developed and alert Orientation/consciousness: patient oriented x3 HEENT Head: Yes normal to inspection, Yes normocephalic and Yes atraumatic Eyes General: appearance normal, both eyes and all related structures Resp Effort & Inspection: normal respiratory effort and able to speak in complete sentences Cardio Rate: regular rate Peripheral pulses: Peripheral pulses 2+ throughout GI Palpation (GI): Soft to palpation Skin Lesions: no lesions Rashes: no rashes Neuro General: patient oriented x3 Extrem Other: Right hip: Normal to inspection. No significant tenderness to palpation along hamstring. Mild discomfort with extension of hip into the hamstring but no significant weakness. NVI. Results Reviewed Results Reviewed: CT femur RT wo IV con 10/17/23 IMPRESSION: 1. High-grade tear of the right hamstring tendons at the origin on the ischial tuberosity. Consider correlation with MRI for a more specific assessment. 2. No significant hematoma. 3. Mild patellofemoral compartment osteoarthritis in the right knee. Assessment & Plan Assessment & Plan (1) Right hamstring muscle strain: Code(s): S76.311A - Strain of muscle, fascia and tendon of the posterior muscle group at thigh level, right thigh, initial encounter Category: Medical Plan Since he is getting better since the last 2 weeks he will continue with resting and modifying activities. No lifting, twisting, or pivoting. I did offer him a course of physical therapy which he would like to hold off at this time but I reviewed some exercises at office which he will work on at home. He will return to work 11/04 working light duty for 4 weeks and then resume without restrictions. If symptoms persist or worsen, patient will contact the office, otherwise follow-up as needed. Patient Instructions: Scribed for David Carmichael PA-C, by Surinder Bridges internist medical doctor md, on 11/03/2023 at 2:45 PM EST.? I, David Carmichael PA-C, have personally reviewed and agree with the information entered by the scribe. Coding Level of Care Code New Pt Level 3 (76012) Diagnoses Right hamstring muscle strain S76.311A
== END 2023-11-03 15:03 | disposition home or self-care (01) ==
PROVIDERS: PCP Physician Assistant; Visit Provider Physician Assistant
DX: S76.311A Strain of muscle, fascia and tendon of the posterior muscle group at thigh level, right thigh, initial encounter (principal); W01.0XXA Fall on same level from slipping, tripping and stumbling without subsequent striking against object, initial encounter
CPT/HCPCS: 99203

== ENCOUNTER → 2023-11-03 14:44 | Outpatient (BNVA) | payer OTHER, SELFPAY | PROVIDERS: PCP Physician Assistant; Visit Provider Physician Assistant ==

== ENCOUNTER 2024-05-30 07:13 | Outpatient (REF) | payer OTHER, SELFPAY ==
--- OUTSIDE RECORDS SUMMARY | 2024-05-30 07:16 | XMS_ITS | Continuity of Care Document ---
Author Organization [facility] Abrahan lt Address [address] [place] [id number]- Support Name Relationship Address Phone GERDA ACEVEDO unrelated friend Unknown Unavail able PERALTA, DIMPLE Personal Relationship Unknown Unavai lable PERALTA, DIMPLE Personal Relationship Unknown Unavai lable PERALTA, DIMPLE Personal Relationship Unknown Unavai lable PERALTA, DIMPLE Personal Relationship Unknown Unavai lable PERALTA, DIMPLE Personal Relationship Unknown Unavai lable PERALTA, DIMPLE Personal Relationship Unknown Unavai lable PERALTA, DIMPLE Personal Relationship Unknown Unavai lable PERALTA, DIMPLE Personal Relationship Unknown Unavai lable PERALTA, DIMPLE Personal Relationship Unknown Unavai lable PERALTA, DIMPLE Personal Relationship Unknown Unavai lable PERALTA, DIMPLE Personal Relationship Unknown Unavai lable PERALTA, DIMPLE Personal Relationship Unknown Unavai lable PERALTA, DIMPLE Personal Relationship Unknown Unavai lable PERALTA, DIMPLE spouse Unknown Unavailable PERALTA, DIMPLE Personal Relationship Unknown Unavai lable PERALTA, DIMPLE Personal Relationship Unknown Unavai lable PERALTA, DIMPLE Personal Relationship Unknown Unavai lable PERALTA, DIMPLE Personal Relationship Unknown Unavai lable PERALTA, DIMPLE Personal Relationship Unknown Unavai lable PERALTA, DIMPLE Personal Relationship Unknown Unavai lable Care Team Providers Care Fire Tower Keeper Name Role Phone Radha Villeda Primary Care Physician Encounter [facility] [place] Date(s): 04/22/24 - 05/22/24 [facility] [address] [place] [phone]- Encounter Type: Triage Allergies, Adverse Reactions, Alerts Substance Criticality Severity Reaction Reaction Severity Status penicillins Urticaria Active Keflex HIVES Active Immunizations Given and Recorded Vaccine Date Status Refusal Reason influenza virus vaccine, inactivated 03/24/22 Carlos rded influenza virus vaccine, inactivated 01/28/21 Carlos rded influenza virus vaccine, inactivated 02/20/20 Carlos rded influenza virus vaccine, inactivated 1 12/17/15 Re corded influenza virus vaccine, inactivated 2 12/30/14 Gi sonny SARS-CoV-2 (COVID-19) mRNA BNT-162b2 vac 03/04/21 Recorded SARS-CoV-2 (COVID-19) mRNA BNT-162b2 vac 04/24/20 Recorded hepatitis B pediatric vaccine 09/04/15 Recorded Tet/diphth/pertussis, acel (oldterm) 09/14/12 Give n Hepatitis B Vaccine (old term) 11/28/06 Given Tetanus Toxoid Vaccine (oldterm) 04/17/00 [place] [facility] [place]: Work Medications Albuterol (Eqv-ProAir HFA) 90 mcg/inh inhalation aerosol 2 puffs, Inhalation, Every 6 hours, PRN Wheezing/Shortness of Breath, # 8.5 Gm, 1 Refills, Maintenance, 06/13/23 8:00:00 AM EST, [facility]/pharmacy #[id number], Partial fill upon patient request if the prescription is for a schedule II opioid drug., 2 puffs Inhalation Every 6 hours,PRN:Wheezing/Shortness of Breath, 169.4, cm, 06/13/23 7:49:00 EST, Height Start Date: 06/13/23 Status: Ordered Quantity: 8.5 Unit: g Repeat number: 2 ALPRAZolam 1 mg oral tablet See Instructions, TAKE 1+1/2 TABLETS BY MOUTH DAILY AT BEDTIME, FOR 30 DAYS, NEEDED FOR ANXIETY,# 45 tablet, 0 Refills, Maintenance, 05/01/24 4:22:00 AM EST, [facility], 169.4, cm, 10/23/23 14:30:00 EDT, Height Start Date: 05/01/24 Status: Ordered Quantity: 45.0 Unit: tablet Repeat number: 1 amlodipine-benazepril 5 mg-10 mg oral capsule 1 capsule, By Mouth, Daily, # 90 capsule, 1 Refills, Maintenance, 02/13/23 8:37:00 PM EDT, [id number], 90, TAKE 1 CAPSULE BY MOUTH EVERY DAY, 169.4, cm, 02/18/22 13:36:00 EDT, Height Start Date: 02/13/23 Status: Ordered Quantity: 90.0 Unit: capsule Repeat number: 1 furosemide 20 mg oral tablet 1, tablet, By Mouth, Daily, # 30 tablet, Refills 0, Maintenance, 12/01/23 11:05:00 AM EDT, Route to Pharmacy Electronically, [facility], 169.4, cm, 10/23/23 14:30:00 EDT, Height Start Date: 12/01/23 Status: Ordered Quantity: 30.0 Unit: tablet Repeat number: 1 Ibuprofen prn, Refills 0, Maintenance, 09/15/16 8:53:27 AM EDT Start Date: 09/15/16 Status: Ordered Repeat number: 1 morphine 15 mg oral tablet, immediate release 1 tablet = 15 mg, By Mouth, Every 8 hours, # 9 tablet, 0 Refills, Maintenance, 10/23/23 4:01:00 PM EDT, [facility], Partial fill upon patient request if the prescription is for a schedule II opioid drug., 169.4, cm, 10/23/23 14:30:00 EDT, Height Start Date: 10/23/23 Stop Date: 10/26/23 Status: Ordered Quantity: 9.0 Unit: tablet Repeat number: 1 SUMAtriptan 100 mg oral tablet 1 tablet = 100 mg, By Mouth, Daily, PRN for migraine headache, may repeat dose after 2 hours up to a maximum of 2 in 24 hours, # 9 tablet, 5 Refills, Maintenance, 01/01/18 11:37:03 AM EDT, Tablet, [facility]/pharmacy #[id number] Start Date: 01/01/18 Status: Ordered Quantity: 9.0 Unit: tablet Repeat number: 6 Problem List Condition Confirmation Course Effective Dates Status Health Status Informant Anxiety Confirmed Active Morbid obesity with BMI of 60.0-69.9, adult Confirmed Active Chronic low back pain Confirmed Active FH: CAD (coronary artery disease) Confirmed Active Hamstring tear Confirmed Active Hypercholesterolemia Confirmed Active HYPERTENSION Confirmed 09/21/09 Active Insomnia - works nights Confirmed 09/21/09 Active Lone atrial fibrillation - 2008 Confirmed Active Depression, major - with anxiety features Confirmed Active Common migraine Confirmed Active Obstructive sleep apnea, severe Confirmed Active 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 Confirmed Active Severe obesity Confirmed Active Social History Social History Type Response Smoking Status Former smoker entered on: 10/30/17 Sex Sex Representation Male (finding) Patient Care team information Care Team Personnel Name: Radha Villeda Position: [facility] PCO Associate Professional Member Role: PCP Address: [address] [place] [id number] Telecom: Care Team Related Persons Name: DIMPLE PERALTA Name: GERDA ACEVEDO Insurance Providers Guarantor name: LISSETT [facility] Plan Information #: 1 Payer: BLUE [employer]EFIT [employer] PPO Member Number: NA Policy Number: NA Group Number: NA
[2024-05-30 08:16] LABS: Hemoglobin 13.5 g/dl (14.0-18.0); Mean Corpuscular HGB Conc 33.8 g/dl (31.0-36.0); Mean Corpuscular Volume 88.9 fL (80.0-98.0); Mean Platelet Volume 9.3 fL (9.4-12.4); Platelet Count 218 X10*3/uL (160-400); Red Cell Distribution Width 13.3 % (11.0-16.0); White Blood Count 8.2 X10*3/uL (4.8-10.8)
[2024-05-30 08:47] LABS: Alanine Aminotransferase 30 U/L (0-40); Albumin Level 4.1 g/dL (3.5-5.0); Alkaline Phosphatase 94 U/L (39-117); Anion Gap 13 (12-20); Aspartate Amino Transferase 29 U/L (5-37); Bilirubin Direct 0.3 mg/dL (0.0-0.5); Bilirubin Total 0.9 mg/dL (0.0-1.0); Blood Urea Nitrogen 18 mg/dL (9-16); Calcium 9.2 mg/dL (8.4-10.2); Carbon Dioxide 22 mmol/L (22-29); Chloride 106 mmol/L (96-108); Cholesterol 135 mg/dL (<200); Estimated Glomerular Filt Rate > 60; Glucose Random 99 mg/dL (60-115); HDL Cholesterol 40 mg/dL (>40); LDL Cholesterol Calculated 75 mg/dL (<100); Potassium 4.1 mmol/L (3.3-5.1); Sodium 137 mmol/L (135-145); Triglycerides 104 mg/dL (<150)
[2024-05-30 09:03] LABS: TSH reflex Free T4 2.81 uIU/mL (0.32-4.0)
[2024-05-31 07:24] LABS: CRP High Sensitivity 9.3 mg/L
[2024-06-04 07:48] LABS: Lipoprotein A <10 nmol/L (<75)
[2024-06-04 08:48] LABS: Apolipoprotein B 72 mg/dL (<90)
[2024-06-05 16:24] LABS: Testosterone, Free 9.8 pg/mL (35.0-155.0); Testosterone, Total 97 ng/dL (250-1100)
== END 2024-05-30 07:14 | disposition home or self-care (01) ==
LOC: HO.LAB 07:13
PROVIDERS: PCP Physician Assistant; Visit Provider Internal Medicine Cardiovascular Disease
DX: I25.10 Atherosclerotic heart disease of native coronary artery without angina pectoris (principal); I10 Essential (primary) hypertension; E78.5 Hyperlipidemia, unspecified
CPT/HCPCS: 36415; 80048; 80061; 80076; 82172; 83695; 84402; 84403; 84443; 85027; 86141

== ENCOUNTER 2024-07-12 09:17 | Outpatient (AMB) | payer OTHER, SELFPAY ==
[2024-07-12 09:25] VITALS: BP 150/80; PULSE 90; O2SAT 97; BMI 55.5
--- NOTE | 2024-07-12 09:25 | MHC.OFFVIS ---
Vital Signs 07/12/24 09:25 Height 5 ft 10.87 in Weight 396 lb 13.313 oz BMI 55.5 BP 150/80 H Blood Pressure Location Rt brachial Position Sitting Pulse 90 Pulse Source Pulse Oximeter Pulse Oximetry (%) 97 Oxygen Delivery Method Room Air Intake Visit Reasons: Other specified abnormal findings of blood chemi Intake Note: New patient present today for Other specified abnormal findings of blood chemistry. Accompanied by: Self / Same As Patient Allergies Penicillins Allergy (Severe, Verified 11/03/23 14:50) urticaria cephalexin [From Keflex] Allergy (Intermediate, Verified 11/03/23 14:50) Hives Medication List - Last Reconciled 07/12/24 by Renea Gandhi MD acetaminophen (Tylenol Extra Strength) 500 mg PO Q6H PRN alprazolam 1 mg PO DAILY PRN amlodipine-benazepril 10-20 mg 1 cap PO DAILY ibuprofen 400 mg PO Q6H PRN ibuprofen 800 mg PO Q8H PRN rosuvastatin 20 mg (1/2 x 40 mg) PO DAILY HPI Comments Details: 54-year-old male coming in today for initial evaluation of male hypogonadism. Male hypogonadism Labs from 05/30/2024 showed low total testosterone of 97, low free testosterone by dialysis of 9.8. Normal kidney function, low hemoglobin hematocrit levels. 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, so tried from that but able to do all his jobs Lack of motivation:no Decreased endurance:no Breast enlargement: feels he has had prominent tissue since age 14, no pain or discomfort Current genitalia status change: none Puberty/milestones:no issues Fertility: no issues with fertiliy, twin boys 14 years and girl 20 years old , had a vasectomy after No major head trauma No testicular trauma No history of radiation therapy Breast enlargement: since young age 14 years Headaches: none Vision changes: none Nipple discharge: none Has SHELIA on CPAP everyday Thyroid review of systems: Patient currently denies heat or cold intolerance, diarrhea or constipation, hair loss, palpitation, anxiety, weight changes, mood changes, low energy, changes in appearance of eyes or vision changes, tremors, increased diaphoresis or dry skin. ? Sense of smell: normal Change in shoe size: none Changing in ring size: N/A History of trauma: none History of radiation:none Lower urinary tract symptoms: none Weight changes: gained 40 lbs in 2 years. angélicaenlty highest weight. gained weight after puberty, institutionalized as a teenager when 18 years old , on lithium and prozac , gained a lot of weight during that time and then never lost. 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 currenlty highest weight. gained weight after puberty, institutionalized as a teenager when 18 years old , on lithium and prozac , gained a lot of weight during that time and then never lost. was around 200 lbs and with every year has been putting on 20 lbs Never thought about bariatric surgery Obesity on paternal side No change in ring size or shoe size, does report easy bruising Physical exam General: sitting comfortably in no acute distress HEENT: normocephalic/atraumatic, EOM intact, moist oral mucosa Neck: supple, symmetrical, no thyromegaly , does have dorsocervical and supraclavicular fat pads Cardiac: normal heart sounds Pulm: normal breath sounds B/L, no added breath sounds Abd: not distended, no tenderness, no purple striae Extremities: no edema, no signs of myxedema Neuro: AAO x3, Speech: normal, no facial droop, moving all 4 extremities Laboratory Tests 05/30/24 07:35 Hgb 13.5 L Hct 40.0 L Potassium 4.1 Chloride 106 Creatinine 0.79 Estimated GFR > 60 TSH 2.81 Total Testosterone 97 L Fr Testosterone Dialys 9.8 L PFSH Medical History History of COVID-19 Obstructive sleep apnea Obesity HTN (hypertension) Paroxysmal atrial fibrillation Surgical History Hx of colonoscopy Hx of foot surgery Family History Father CAD (coronary artery disease) HTN (hypertension) Hyperlipidemia Paternal Grandfather CAD (coronary artery disease) HTN (hypertension) Hyperlipidemia Social History Household Members: Family Are you a primary field care advocate to a significant other at home: No Do you presently have visiting nurse or other home services: No Alcohol intake: current Alcohol intake frequency: 3 or more drinks per day Alcohol type: beer Patient Tobacco Use Status: Former Tobacco user Tobacco use type: Cigarette Years Smoked: 2 months Substance Use Type: Marijuana Physical Exam Vital Signs: Last Vital Signs Pulse 90 07/12/24 09:25 BP 150/80 H 07/12/24 09:25 Pulse Ox 97 07/12/24 09:25 Oxygen Delivery Method Room Air 07/12/24 09:25 BMI result Body Mass Index 55.5 Assessment & Plan Assessment & Plan (1) Male hypogonadism: Code(s): E29.1 - Testicular hypofunction Category: Medical Plan: 54-year-old male here today for initial evaluation of hypogonadism. Labs from 05/30/2024 showed low total testosterone of 97, low free testosterone by dialysis of 9.8. Normal kidney function, low hemoglobin hematocrit levels also consistent with low testosterone levels. He has a history of sleep apnea treated with CPAP. 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 Third shift workers are noted to have low testosterone levels sometimes due to impaired sleep pattern. However his testosterone levels are quite low so I doubt it is just because of sleep pattern issues. We will repeat testosterone levels with FSH, LH to see if he has primary or secondary hypogonadism. Unlikely any genetic/congenital issues as he has had a normal puberty, he has had fathered 3 children. No anabolic steroid use. No history of opiate use, we will also check for iron overload. No history of trauma radiation to testes or pituitary. He does have class 3 obesity, which could be causing secondary hypogonadism. Obesity addressed below. His main concern symptomatic abel was just erectile dysfunction, I told him he can try Viagra by asking his PCP for a prescription but we will work on endocrine etiology for his symptoms. Plan: -repeat testosterone, total testosterone, free testosterone, bioavailable testosterone, and do SHBG, FSH, LH, iron levels, prolactin levels at 08:00 after 3 consecutive nights of 8 hours sleep previously -follow up in 8 weeks to discuss results -weight management as discussed below (2) Obesity: Code(s): E66.9 - Obesity, unspecified Category: Medical Qualifiers: Obesity type: due to excess calories Obesity classification: adult class 3 (BMI >= 40) Serious obesity comorbidity presence: with serious comorbidity Body mass index: BMI 50.0-59.9 Qualified Code(s): E66.813 - Obesity, class 3; E66.01 - Morbid (severe) obesity due to excess calories; Z68.43 - Body mass index [BMI] 50.0-59.9, adult Plan: Class 3 obesity, current BMI 55.6 kg per m2 Current weight 396 lb gained 40 lbs in 2 years. currenlty highest weight. gained weight after puberty, institutionalized as a teenager when 18 years old , on lithium and prozac , gained a lot of weight during that time and then never lost. was around 200 lbs and with every year has been putting on 20 lbs With serious comorbidity of hypertension hyperlipidemia hypogonadism. I reviewed with patient the importance of weight loss as it relates to decreasing the risk of diabetes, cardiovascular disease, obstructive sleep apnea,, arthritis. We reviewed the importance of decreasing total calorie consumption, minimizing fats and carbohydrates. We discussed the 500 calorie deficit daily plan by using phone apps such as [employer] it. We reviewed the plate method. We discussed importance of exercise. He would be a candidate for bariatric surgery or potent weight loss medications such as Zepbound or Wegovy. No features of acromegaly. We will check 24 hour urine cortisol levels to assess for possible hypercortisolism. Though these can sometimes be falsely elevated in obesity. Plan: -ordered 24 hour urine cortisol and creatinine levels -bariatric surgery referral placed -lifestyle modification as advised above -follow up in 8 weeks Plan I spent 60 minutes in reviewing the record, seeing the patient and documenting in the medical record. Orders: Orders Bioavailable Testosterone Today E29.1 - Testicular hypofunction Lutenizing Hormone Today E29.1 - Testicular hypofunction Prolactin Today E29.1 - Testicular hypofunction Sex Hormone Binding Globulin Today E29.1 - Testicular hypofunction IRON PROFILE Today E29.1 - Testicular hypofunction Cortisol, Free 24Hr Urine Today E29.1 - Testicular hypofunction, E66.9 - Obesity, unspecified Creatinine, 24 Hr Group Today E29.1 - Testicular hypofunction, E66.9 - Obesity, unspecified Follicle Stimulating Hormone Today E29.1 - Testicular hypofunction Testosterone, Free/Total Today E29.1 - Testicular hypofunction Referrals Bariatric Surgery Referral E66.9 - Obesity, unspecified Patient Instructions: Get an 8 hours stretch of sleep for 3 consecutive nights and do blood work at 8 AM the next morning Follow up in 8 weeks to discuss results Talk to your primary care about trying viagra for erection Talk to your primary care about blood pressure optimization Weight loss counselling ? Limit added sugars to less than 25 grams daily. There are 4.2 grams of sugar per teaspoon of sugar. A teaspoon of honey has 6 grams of sugar! Bread also can have more sugar than you think-check labels ? No soda or juices. Drink water, unsweetened iced tea or seltzer ? Limit eating out/take out or prepared meals to twice weekly at most ? Avoid red meat, hot dogs, mejia and deli meat. Substitute plant protein for animal protein as much as you can. Beans, nuts, tofu, soy milk ? Limit cheese to 1 ounce a few times weekly ? Eat high fiber foods like beans, apples and green veggies, salsa is a great snack with whole grain cracker like Wasa ? Look for the whole grain stamp when choosing bread etc. Aim for 48 grams of whole grains daily. Whole wheat does not equal whole grains! ? Don't keep tempting treats in the house. Go out once in a while for a treat. ? Don't eat anything deep fried or cream based-no sour cream 24 hr urine collection instructions You have been asked to collect your urine for 24 hours to assess for cortisol excretion. You must choose a 24 hour period of time when you will be home. The morning of the first day, DISCARD the FIRST morning void and then note the time. You will collect every single void from then on for 24 hours. For example, if you wake up at 6am and urinate, flush down that void. You will then collect every drop of urine all day and all night through 6am the following day. You will urinate one last time at 6am for the collection. The jug of urine must be kept in the refrigerator until you bring it to the lab. Coding Level of Care Code New Pt Level 5 (84998) Diagnoses Male hypogonadism E29.1 Class 3 severe obesity due to excess calories with serious comorbidity and body mass index (BMI) of 50.0 to 59.9 in adult E66.813; E66.01; Z68.43 Obesity type: due to excess calories Obesity classification: adult class 3 (BMI >= 40) Serious obesity comorbidity presence: with serious comorbidity Body mass index: BMI 50.0-59.9 Time Spent (min) 60
== END 2024-07-12 10:22 | disposition home or self-care (01) ==
LOC: HO.ENCR 09:18
PROVIDERS: PCP Physician Assistant; Visit Provider Student in an Organized Health Care Education/Training Program
DX: E29.1 Testicular hypofunction (principal); E66.813 Obesity, class 3; Z68.43 Body mass index [BMI] 50.0-59.9, adult
CPT/HCPCS: 99205

== ENCOUNTER 2024-08-12 08:48 | Outpatient (REF) | payer OTHER, SELFPAY ==
[2024-08-12 10:10] LABS: Iron 66 mcg/dL (45-160); Percent Iron Saturation 23 % (15-50); Total Iron Binding Capacity 286 mcg/dL (228-428); Unsaturated Iron Binding 220 ug/dL
[2024-08-13 05:48] LABS: Follicle Stimulating Hormone 3.3 mIU/mL (1.4-12.8); Lutenizing Hormone 3.9 mIU/mL (1.5-9.3)
[2024-08-17 15:08] LABS: Sex Hormone Binding Globulin 38 nmol/L (10-50); Testosterone-Albumin 4.2 g/dL (3.6-5.1); Testosterone-Bioavailable 13.8 ng/dL (110.0-575.0); Testosterone-Free 7.2 pg/mL (46.0-224.0); Testosterone-Total 67 ng/dL (250-1100)
== END 2024-08-12 08:49 | disposition home or self-care (01) ==
LOC: HO.LAB 08:48
PROVIDERS: PCP Physician Assistant; Visit Provider Student in an Organized Health Care Education/Training Program
DX: E29.1 Testicular hypofunction (principal)
CPT/HCPCS: 36415; 83001; 83002; 83540; 84146; 84270; 84402; 84403

== ENCOUNTER → 2024-09-06 15:42 | Outpatient (BNV) | payer OTHER, SELFPAY | PROVIDERS: PCP Physician Assistant; Visit Provider Radiology Diagnostic Radiology | DX: E29.1 Testicular hypofunction (principal) | CPT/HCPCS: 70553 ==

== ENCOUNTER 2024-09-06 15:57 | Outpatient (REF) | payer OTHER, SELFPAY ==
--- NOTE | ~2024-09-06 | MR_ITS ---
EXAMINATION: MR BRAIN/PITUITARY WITHOUT AND WITH CONTRAST CLINICAL INFORMATION: Hypogonadism. Please evaluate the pituitary gland. COMPARISON: None available. TECHNIQUE: Multiplanar, multisequence MRI of the brain and sella was obtained before and after the intravenous administration of 5 mL Gadavist. Examination performed on a 1.5 Abbie high-field Siemens unit. FINDINGS: SELLA: The pituitary gland is normal in size and demonstrates a normal concave superior border. Normal posterior pituitary bright spot. There is no sellar expansion. The infundibulum is midline. There is no infundibular thickening. No abnormal pituitary enhancement. Cavernous sinuses enhance normally. Cavernous carotid artery flow voids are normal. The suprasellar cistern, suprasellar structures, and parasellar structures appear normal. IMAGED BRAIN: There is no diffusion restriction. Ventricles, sulci, and cisterns are normal in size and configuration for patient age. There is no mass effect, edema, or shift of midline. There is no ventriculomegaly. There is no intracranial hemorrhage or extra-axial fluid collection. There are no white matter abnormalities. There is no abnormal intra or extra-axial enhancement after the administration of contrast material. Midline structures are normally formed. The cerebellar tonsils are appropriately located. Major arterial flow voids remain preserved within the skull base. The globes and orbital contents appear normal. The paranasal sinuses, mastoid air cells, and tympanic spaces are normally aerated. There is no extracranial soft tissue abnormality. There are no suspicious bone marrow signal abnormalities. MR/MR head/brain wo/w con IMPRESSION: 1. Normal enhanced MRI of the pituitary gland and brain. Electronically signed by: Evaristo Helm MD 09/10/2024 02:35 PM EDT
[2024-09-06] MEDS: gadobutroL 7.5 ML VIAL IVPUSH (17:03)
== END 2024-09-06 15:58 | disposition home or self-care (01) ==
LOC: HO.MRI 15:57
PROVIDERS: PCP Physician Assistant; Visit Provider Student in an Organized Health Care Education/Training Program
DX: E23.0 Hypopituitarism (principal)
CPT/HCPCS: 70553; A9585

== ENCOUNTER 2024-09-07 09:50 | Outpatient (REF) | payer OTHER, SELFPAY ==
[2024-09-07 10:48] LABS: Creatinine, mg/dL 132.29
[2024-09-07 14:18] LABS: Creatinine, 24Hr Urine 1.3 G/Day (1.0-2.0); Total Volume 24 Hour Urine 1000 mL
[2024-09-13 12:53] LABS: Cortisol Free, 24 Hr Urine 19.5 mcg/24 h (4.0-50.0); Creatinine, 24 Hr Urine 1.34 g/24 h (0.50-2.15); Total Volume, 24 Hr Urine 1000 mL
== END 2024-09-07 09:51 | disposition home or self-care (01) ==
LOC: HO.LNP 09:50
PROVIDERS: Visit Provider Student in an Organized Health Care Education/Training Program
DX: E29.1 Testicular hypofunction (principal); E66.9 Obesity, unspecified
CPT/HCPCS: 82530; 82570

== ENCOUNTER → 2024-09-10 10:48 | Outpatient (BNVA) | payer OTHER, SELFPAY | PROVIDERS: PCP Physician Assistant; Visit Provider Student in an Organized Health Care Education/Training Program ==

== ENCOUNTER → 2024-09-10 10:48 | Outpatient (AMB) | payer OTHER, SELFPAY ==
[2024-09-10 10:51] VITALS: BP 132/78; PULSE 76; O2SAT 97; BMI 55.8
--- NOTE | 2024-09-10 10:51 | A.OFFVIS_ITS ---
Vital Signs 09/10/24 10:51 Height 5 ft 10 in Weight 388 lb 14.327 oz BMI 55.8 BP 132/78 Blood Pressure Location Lt brachial Position Sitting Pulse 76 Pulse Source Pulse Oximeter Pulse Oximetry (%) 97 Oxygen Delivery Method Room Air Intake Visit Reasons: Other specified abnormal findings of blood chemi Intake Note: Patient present today for Other specified abnormal findings of blood chemistry. City Jailer Required: No Accompanied by: Self / Same As Patient Allergies Penicillins Allergy (Severe, Verified 09/10/24 10:55) urticaria cephalexin [From Keflex] Allergy (Intermediate, Verified 09/10/24 10:55) Hives Medication List - Last Reconciled 09/10/24 by Renea Gandhi MD acetaminophen (Tylenol Extra Strength) 500 mg PO Q6H PRN alprazolam 1 mg PO DAILY PRN amlodipine-benazepril 10-20 mg 1 cap PO DAILY furosemide 20 mg PO DAILY ibuprofen 400 mg PO Q6H PRN ibuprofen 800 mg PO Q8H PRN rosuvastatin 40 mg PO DAILY tirzepatide (weight loss) (Zepbound) 2.5 mg (0.5 mL) subcut QWEEK HPI Comments Details: 54-year-old male coming in today for follow up of male hypogonadism. Male hypogonadism Labs from 05/30/2024 07:30 showed low total testosterone of 97, low free testosterone by dialysis of 9.8. Normal kidney function, low hemoglobin hematocrit levels. Sexually active with halfway partner , cis female . 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 jobs Lack of motivation:no Decreased endurance:no Breast enlargement: feels he has had prominent tissue since age 14, no pain or discomfort Current genitalia status change: none Puberty/milestones:no issues Fertility: no issues with fertiliy, twin boys 14 years and girl 20 years old , had a vasectomy after No major head trauma No testicular trauma No history of radiation therapy Breast enlargement: since young age 14 years Headaches: none Vision changes: none Nipple discharge: none Has SHELIA on CPAP everyday Thyroid review of systems: Patient currently denies heat or cold intolerance, diarrhea or constipation, hair loss, palpitation, anxiety, weight changes, mood changes, low energy, changes in appearance of eyes or vision changes, tremors, increased diaphoresis or dry skin. ? Sense of smell: normal Change in shoe size: none Changing in ring size: N/A History of trauma: none History of radiation:none Lower urinary tract symptoms: none Weight changes: gained 40 lbs in 2 years. currenlty highest weight. gained weig ht after puberty, institutionalized as a teenager when 18 years old , on lithium and prozac , gained a lot of weight during that time and then never lost. 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 The still continues with the erectile dysfunction Blood work from 08/04/2024 done at 09:00 showed again low total testosterone of 67, low free testosterone of 7.2, low bioavailable testosterone 13.8, SHBG on the high-normal side, normal prolactin, inappropriately normal FSH and LH, normal iron panel, consistent with secondary hypogonadism. Thyroid function was normal back in May 2024. MRI brain done 09/06/2024, report is still pending, I do not see any large adenoma on the images but we will wait for report. Obesity Class 3 obesity, current BMI 55.6 kg per m2 Current weight 396 lb gained 40 lbs in 2 years. currenlty highest weight. gained weight after puberty , institutionalized as a teenager when 18 years old , on lithium and prozac , gained a lot of weight during that time and then never lost. was around 200 lbs and with every year has been putting on 20 lbs Never thought about bariatric surgery Obesity on paternal side No change in ring size or shoe size, does report easy bruising Interval history 09/10/24 Los t 8 lbs in the past 2 months Exercise: walking a mile 3 times a week, lifting weights , crunches exercises 4 times a week Diet : calorie counting, stopped refines and junk food , increasing more protein intake 24 hour urine cortisol levels still pending. Physical exam General: sitting comfortably in no acute distress HEENT: normocephalic/atraumatic, EOM intact, moist oral mucosa Neck: supple, symmetrical, no thyromegaly , does have dorsocervical and supraclavicular fat pads Cardiac: normal heart sounds Pulm: normal breath sounds B/L, no added breath sounds Abd: not distended, no tenderness, no purple striae Extremities: no edema, no signs of myxedema Neuro: AAO x3, Speech: normal, no facial droop, moving all 4 extremities Laboratory Tests 05/30/24 07:35 Hgb 13.5 L Hct 40.0 L Potassium 4.1 Chloride 106 Creatinine 0.79 Estimated GFR > 60 TSH 2.81 Total Testosterone 97 L Fr Testosterone Dialys 9.8 L Laboratory Tests 08/12/24 09:14 Iron 66 TIBC 286 % Saturation 23 Unsat Iron Binding 220 FSH 3.3 Luteinizing Hormone 3.9 Prolactin 10.0 Testosterone Level 67 L Free Testoster w SHBG 7.2 L Bioavail Testosterone 13.8 L Sex Hormone Bind Glob 38 PFSH Medical History (Updated 08/19/24 @ 11:17 by Renea Gandhi MD) Hypogonadotropic hypogonadism Male hypogonadism History of COVID-19 Obstructive sleep apnea Obesity HTN (hypertension) Paroxysmal atrial fibrillation Surgical History Hx of colonoscopy Hx of foot surgery Family History Father CAD (coronary artery disease) HTN (hypertension) Hyperlipidemia Paternal Grandfather CAD (coronary artery disease) HTN (hypertension) Hyperlipidemia Social History Household Members: Family Are you a primary care coordinator to a significant other at home: No Do you presently have visiting nurse or other home services: No Alcohol intake: current Alcohol intake frequency: 3 or more drinks per day Alcohol type: beer Patient Tobacco Use Status: Former Tobacco user Tobacco use type: Cigarette Years Smoked: 2 months Substance Use Type: Marijuana Physical Exam Vital Signs: Last Vital Signs Pulse 76 09/10/24 10:51 BP 132/78 09/10/24 10:51 Pulse Ox 97 09/10/24 10:51 Oxygen Delivery Method Room Air 09/10/24 10:51 BMI result Body Mass Index 55.8 Assessment & Plan Assessment & Plan (1) Male hypogonadism: Code(s): E29.1 - Testicular hypofunction Category: Medical Plan: 54-year-old male here today for fup of hypogonadism. Labs from 05/30/2024 7 30 AM showed low total testosterone of 97, low free testosterone by dialysis of 9.8. Normal kidney function, low hemoglobin hematocrit levels also consistent with low testosterone levels. He has a history of sleep apnea treated with CPAP. 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 Third shift workers are noted to have low testosterone levels sometimes due to impaired sleep pattern. However his testosterone levels are quite low so I doubt it is just because of sleep pattern issues. Blood work from 08/04/2024 done at 09:00 showed again low total testosterone of 67, low free testosterone of 7.2, low bioavailable testosterone 13.8, SHBG on the high-normal side, normal prolactin, inappropriately normal FSH and LH, normal iron panel, consistent with secondary hypogonadism. This blood work was repeated after 3 consecutive nights of sleep however he did not do it early enough in the morning. Thyroid function was normal back in May 2024. MRI brain done 09/06/2024, report is still pending, I do not see any large adenoma on the images but we will wait for report. Unlikely any genetic/congenital issues as he has had a normal puberty, he has had fathered 3 children. No anabolic steroid use. No history of opiate use, we will also check for iron overload. No history of trauma radiation to testes or pituitary. He does have class 3 obesity, which is likely causing secondary hypogonadism. Obesity addressed below. His main concern symptomatic abel was just erectile dysfunction, he tried Viagra but got dizzy and lightheaded. Plan: -repeat testosterone, total testosterone, free testosterone, bioavailable testosterone, acth, cortisol, IGF-1, FSH, LH at 08:00 after 3 consecutive nights of 8 hours sleep previously -follow up results of the MRI -follow up in 8 weeks to discuss results -weight management as discussed below (2) Obesity: Code(s): E66.9 - Obesity, unspecified Category: Medical Qualifiers: Body mass index: BMI 50.0-59.9 Obesity classification: adult class 3 (BMI >= 40) Obesity type: due to excess calories Serious obesity comorbidit y presence: with serious comorbidity Qualified Code(s): E66.813 - Obesity, class 3; E66.01 - Morbid (severe) obesity due to excess calories; Z68.43 - Body mass index [BMI] 50.0-59.9, adult Plan: Class 3 obesity, current BMI 55.8 kg per m2 Current weight 388 lb down from 396 lb 8 weeks ago, he has lost 8 lb gained 40 lbs in 2 years. currenlty highest weight. gained weight after puberty, institutionalized as a teenager when 18 years old , on lithium and prozac , gained a lot of weight during that time and then never lost. was around 200 lbs and with every year has been putting on 20 lbs With serious comorbidity of hypertension hyperlipidemia hypogonadism. We will also check A1c. I reviewed with patient the importance of weight loss as it relates to decreasing the risk of diabetes, cardiovascular disease, obstructive sleep apnea,, arthritis. He is currently maintaining an active exercise regimen since we last spoke about lifestyle modification. He is walking a mi 3 times a week and also doing resistance training about 4 times a week. He is also working on calorie deficit, increased protein intake, avoidance of refined sugars and junk food/fast food. He has lost 8 lb since the last 8 weeks. He would be a candidate for bariatric surgery or potent weight loss medications such as Zepbound or Wegovy. He is not interested in surgery. No history of pancreatitis, no family history of medullary thyroid cancer, denies current alcohol use, no history of gallstones. I will start him on Zepbound. He has severe class 3 obesity with serious comorbidity of hyperlipidemia on statin, hypertension, and secondary hypogonadism. No features of acromegaly. 24 hour urine cortisol levels pending to assess for possible hypercortisolism. Though these can sometimes be falsely elevated in obesity. Plan: -start Zepbound 2.5 mg weekly injection with plan for up titration after 4 weeks of the initial dose -follow up 24 hour urine cortisol and creatinine levels -lifestyle modification as advised above , continue maintenance of calorie deficit and current exercise regimen -follow up in 8 weeks Plan I spent 30 minutes in reviewing the record, seeing the patient and documenting in the medical record. Orders: Orders Testosterone, Free/Total Today E29.1 - Testicular hypofunction, E66.01 - Morbid (severe) obesity due to excess calories, E66.813 - Obesity, class 3, Z68.43 - Body mass index [BMI] 50.0-59.9, adult Adrenocorticotropic Hormone Today E29.1 - Testicular hypofunction, E66.01 - Mor bid (severe) obesity due to excess calories, E66.813 - Obesity, class 3, Z68.43 - Body mass index [BMI] 50.0-59.9, adult Bioavailable Testosterone Today E29.1 - Testicular hypofunction, E66.01 - Morbid (severe) obesity due to excess calories, E66.813 - Obesity, class 3, Z68.43 - Body mass index [BMI] 50.0-59.9, adult Lutenizing Hormone Today E23.0 - Hypopituitarism, E29.1 - Testicular hypofunction Follicle Stimulating Hormone Today E23.0 - Hypopituitarism, E29.1 - Testicular hypofunction Sex Hormone Binding Globulin Today E29.1 - Testicular hypofunction, E66.01 - Morbid (severe) obesity due to excess calories, E66.813 - Obesity, class 3, Z68.43 - Body mass index [BMI] 50.0-59.9, adult Cortisol Random Today E29.1 - Testicular hypofunction, E66.01 - Morbid (severe) obesity due to excess calories, E66.813 - Obesity, class 3, Z68.43 - Body mass index [BMI] 50.0-59.9, adult IGF-1 (Somatomedin C) Today E29.1 - Testicular hypofunction, E66.01 - Morbid (severe) obesity due to excess calories, E66.813 - Obesity, class 3, Z68.43 - B dilia mass index [BMI] 50.0-59.9, adult Hemoglobin A1c Today E29.1 - Testicular hypofunction, E66.01 - Morbid (severe) obesity due to excess calories, E66.813 - Obesity, class 3, Z68.43 - Body mass index [BMI] 50.0-59.9, adult Medications: New tirzepatide (weight loss) (Zepbound) for 4 weeks 2.5 mg (0.5 mL) subcut QWEEK 2 mL 3RF Patient Instructions: Start Zepbound 2.5 mg weekly injection , please call your pharamcy in 3-4 days to see if they need a prior auth and let us know . If this gets approved , then also please let me know Do blood work at 8 AM after 3 days of 8 hrs of sleep , fasting Continue working on weight management We will see you back in 8 weeks to discuss all results Coding Level of Care Code Est Pt Level 4 (80463) Diagnoses Male hypogonadism E29.1 Class 3 severe obesity due to excess calories with serious comorbidity and body mass index (BMI) of 50.0 to 59.9 in adult E66.813; E66.01; Z68.43 Body mass index: BMI 50.0-59.9 Obesity classification: adult class 3 (BMI >= 40) Obesity type: due to excess calories Serious obesity comorbidity presence: with serious comorbidity Time Spent (min) 30
== END ==
LOC: HO.ENCR 10:49
PROVIDERS: PCP Physician Assistant; Visit Provider Student in an Organized Health Care Education/Training Program
DX: E29.1 Testicular hypofunction (principal); E66.813 Obesity, class 3; E66.01 Morbid (severe) obesity due to excess calories; Z68.43 Body mass index [BMI] 50.0-59.9, adult
CPT/HCPCS: 99214

== ENCOUNTER 2024-11-04 06:13 | Outpatient (REF) | payer OTHER, SELFPAY ==
[2024-11-04 08:15] LABS: Hemoglobin A1C 128.2585 umol/L; Total Hemoglobin (HGBA1C) 3440.6413 umol/L
[2024-11-05 02:59] LABS: Follicle Stimulating Hormone 3.1 mIU/mL (1.4-12.8)
[2024-11-07 15:54] LABS: Testosterone-Albumin 3.9 g/dL (3.6-5.1); Testosterone-Bioavailable 15.7 ng/dL (110.0-575.0); Testosterone-Free 8.7 pg/mL (46.0-224.0); Testosterone-Total 80 ng/dL (250-1100)
[2024-11-09 01:28] LABS: IGF-1 (Somatomedin C) 46 ng/mL (50-317); IGF-1 Z Score (Male) -2.1 SD (-2.0 - +2.0)
== END 2024-11-04 06:14 | disposition home or self-care (01) ==
LOC: HO.LAB 06:13
PROVIDERS: PCP Physician Assistant; Visit Provider Student in an Organized Health Care Education/Training Program
DX: E29.1 Testicular hypofunction (principal); E66.813 Obesity, class 3; E66.01 Morbid (severe) obesity due to excess calories; Z68.43 Body mass index [BMI] 50.0-59.9, adult; Z13.1 Encounter for screening for diabetes mellitus
CPT/HCPCS: 36415; 82024; 82533; 83001; 83002; 83036; 84270; 84305; 84402; 84403

== ENCOUNTER 2024-12-13 13:41 | Outpatient (AMB) | payer OTHER, SELFPAY ==
--- OUTSIDE RECORDS SUMMARY | 2024-12-11 23:59 | XMS_ITS | Continuity of Care Document ---
Author Organization [facility] Abrahan lt Address [address] [place] [id number]- Support Name Relationship Address Phone GREDA ACEVEDO unrelated friend Unknown Unavail able PERALTA, [...] Unknown Unavai lable Care Team Providers Care Hearing Aid Repairer Name Role Phone Radha Villeda Primary Care Physician Encounter [facility] Date(s): 11/11/24 - 12/11/24 [facility] [address] [place] [address]- Encounter Type: Triage Allergies, Adverse Reactions, Alerts Substance Criticality Severity Reaction Reaction Severity Status penicillins Urticaria Active Keflex HIVES Active Immunizations Given and Recorded Vaccine Date Status Refusal Reason tetanus/diphtheria/pertussis, acel(Tdap) 09/30/24 Given influenza virus vaccine, inactivated 03/24/22 Carlos rded [...] Toxoid Vaccine (oldterm) 04/17/00 Given 1Location History: [facility] employer 2Admin Note: Work Medications Albuterol (Eqv-ProAir HFA) 90 mcg/inh inhalation aerosol 2 puffs, Inhalation, Every 6 hours, PRN Wheezing/Shortness of Breath, # 8.5 Gm, 1 Refills, Maintenance, 06/13/23 8:00:00 AM EST, [facility]/pharmacy #[id number], Partial fill upon patient request if the prescription is for a schedule II opioid drug., 2 puffs Inhalation Every 6 hours,PRN:Wheezing/Shortness of Breath, 169.4, cm, 06/13/23 7:49:00 EST, Height Start Date: 06/13/23 Status: Ordered Medication Dispense Status: Completed Quantity: 8.5 Unit: g Total Allowed Fills: 2 Fills Dispensed: 0 ALPRAZolam 1 mg oral tablet See Instructions, TAKE ONE AND A HALF TABLETS, (1.5MG) BY MOUTH EVERY NIGHT AT BEDTIME NEEDED FOR ANXIETY, # 45 tablet, 1 Refills, Maintenance, 11/28/24 7:48:00 AM EDT, [facility] Pharm[facility], 169.4, cm, 11/06/24 12:21:00 EDT, Height Start Date: 11/28/24 Status: Ordered Medication Dispense Status: Completed Quantity: 45.0 Unit: tablet Total Allowed Fills: 2 Fills Dispensed: 0 amlodipine-benazepril 5 mg-10 mg oral capsule 1 capsule, By Mouth, Daily, # 90 capsule, 1 Refills, Maintenance, 02/13/23 8:37:00 PM EDT, [id number], 90, TAKE 1 CAPSULE BY MOUTH EVERY DAY, 169.4, cm, 02/18/22 13:36:00 EDT, Height Start Date: 02/13/23 Status: Ordered Medication Dispense Status: Completed Quantity: 90.0 Unit: capsule Total Allowed Fills: 1 Fills Dispensed: 0 Cialis 20 mg oral tablet 1 tablet = 20 mg, By Mouth, Daily, PRN as needed, 1 hour before sexual activity, # 12 tablet, 5 Refills, Maintenance, 09/30/24 7:16:00 AM EDT, Tablet, [facility], Partial fill upon patient request if the prescription is for a schedule II opioid drug., 169.4, cm, 09/30/24 7:10:00 EDT, Height Start Date: 09/30/24 Status: Ordered Medication Dispense Status: Completed Quantity: 12.0 Unit: tablet Total Allowed Fills: 6 Fills Dispensed: 0 furosemide 20 mg oral tablet 1, tablet, By Mouth, Daily, # 30 tablet, Refills 0, Maintenance, 11/14/24 9:34:00 AM EDT, Route to Pharmacy Electronically, [facility] Pharm[facility], 169.4, cm, 11/06/24 12:21:00 EDT, Height Start Date: 11/14/24 Status: Ordered Medication Dispense Status: Completed Quantity: 30.0 Unit: tablet Total Allowed Fills: 1 Fills Dispensed: 0 Ibuprofen prn, Refills 0, Maintenance, 09/15/16 8:53:27 AM EDT Start Date: 09/15/16 Status: Ordered Medication Dispense Status: Completed Total Allowed Fills: 1 Fills Dispensed: 0 morphine 15 mg oral tablet, immediate release 1 tablet = 15 mg, By Mouth, Every 8 hours, # 9 tablet, 0 Refills, Maintenance, 10/23/23 4:01:00 PM EDT, [facility], Partial fill upon patient request if the prescription is for a schedule II opioid drug., 169.4, cm, 10/23/23 14:30:00 EDT, Height Start Date: 10/23/23 Stop Date: 10/26/23 Status: Ordered Medication Dispense Status: Completed Quantity: 9.0 Unit: tablet Total Allowed Fills: 1 Fills Dispensed: 0 rosuvastatin 40 mg oral tablet 0 Refills, Maintenance, 08/05/24 1:00:00 PM EDT, Partial fill upon patient request if the prescription is for a schedule II opioid drug. Start Date: 08/05/24 Status: Ordered Medication Dispense Status: Completed Total Allowed Fills: 1 Fills Dispensed: 0 Problem List Condition Confirmation Course Effective Dates Status Health Status Informant Anxiety Confirmed Active Morbid obesity with BMI of 60.0-69.9, adult Confirmed Active Chronic low back pain Confirmed Active Erectile dysfunction Confirmed Active FH: CAD (coronary artery disease) Confirmed Active Hamstring tear Confirmed Active Hypercholesterolemia Confirmed Active HYPERTENSION Confirmed 09/21/09 Active Insomnia - works nights Confirmed 09/21/09 Active Lone atrial fibrillation - 2008 Confirmed Active Depression, major - with anxiety features Confirmed Active Common migraine Confirmed Active Obstructive sleep apnea, severe Confirmed Active 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 Sex Sex Representation Male (finding) Patient Care team information Care Team Personnel Name: Radha Villeda Position: [facility] PCO Associate Professional Member Role: PCP Address: [address] [place] [phone]- Telecom: Care Team Related Persons Name: DIMPLE PERALTA Name: GERDA ACEVEDO Insurance Providers Guarantor name: L[facility]T [facility] Information #: 1 Payer: BLUE BENEFIT [employer] PPO Payer Identifier: ASHLEY Member Number: [id number] Group Number: [id number] Subscriber Identifier: NA Relationship to Subscriber: self Coverage Type: BLUE CROSS/BLUE SHIELD Coverage Verification Date: NA Telecom: NA Address:
--- NOTE | 2024-12-13 13:52 | MHC.OFFVIS ---
Vital Signs 12/13/24 13:55 Height 5 ft 10 in Weight 380 lb BMI 54.5 BP 124/68 Blood Pressure Location Lt brachial Position Sitting Pulse 95 Pulse Source Monitor Intake Visit Reasons: overdue follow-up Allergies Penicillins Allergy (Severe, Verified 09/10/24 10:55) urticaria cephalexin (From Keflex) Allergy (Intermediate, Verified 09/10/24 10:55) Hives Medication List - Last Reconciled 12/13/24 by Piotr Samano NP acetaminophen (Tylenol Extra Strength) 500 mg PO Q6H PRN alprazolam 1 mg PO DAILY PRN amlodipine-benazepril 10-20 mg 1 cap PO DAILY furosemide 20 mg PO DAILY ibuprofen 800 mg PO Q8H PRN rosuvastatin 40 mg PO DAILY tirzepatide (weight loss) (Zepbound) 2.5 mg (0.5 mL) subcut QWEEK HPI Comments Details: This is a 54-year-old male patient coming in for a follow-up visit. Patient with a history of hypertension, hyperlipidemia, paroxysmal AFib, sleep apnea, and obesity. 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 Patient had previously noted skipped heartbeats for which patient underwent an echo and a Holter study. Today, patient reports feeling well overall without any cardiac symptoms of exertional chest pain, shortness of breath, palpitations, dizziness, orthopnea, PND, presyncope, or syncope. Patient is reporting bilateral leg swelling from dependent position for which patient was started on low-dose Lasix from his PCP. Patient is also following Dr. Gandhi for low T levels. Patient notes that he has started getting more active with exercise and yoga and is also on Zepbound for weight loss. Patient is reporting compliance with all his medications. FORMERLY [facility], [facility] Medical History Hypogonadotropic hypogonadism Male hypogonadism History of COVID-19 Obstructive sleep apnea Obesity HTN (hypertension) Paroxysmal atrial fibrillation Surgical History Hx of colonoscopy Hx of foot surgery Family History Father CAD (coronary artery disease) HTN (hypertension) Hyperlipidemia Paternal Grandfather CAD (coronary artery disease) HTN (hypertension) Hyperlipidemia Social History Household Members: Family Are you a primary rn critical care to a significant other at home: No Do you presently have visiting nurse or other home services: No Alcohol intake: current Alcohol intake frequency: 3 or more drinks per day Alcohol type: beer Patient Tobacco Use Status: Former Tobacco user Tobacco use type: Cigarette Years Smoked: 2 months Substance Use Type: Marijuana Review of Systems Const Denies weakness ENT Denies dizziness Card Denies chest pain, Denies chest pain with activity, Denies syncope, Denies rapid heart rate, Denies pedal edema, Denies edema, Denies leg edema, Denies lightheadedness, Denies palpitations, Denies dyspnea, Denies dyspnea on exertion and Denies orthopnea Resp Denies cough, Denies dyspnea and Denies dyspnea on exertion GI Denies hematochezia and Denies change in stool character Musc Denies abnormal gait, Denies muscle cramps, Denies muscle weakness, Denies numbness, Denies radiating pain into limb and Denies tingling Neuro Denies abnormal gait, Denies dizziness, Denies syncope, Denies numbness, Denies tingling and Denies weakness Endo Denies palpitations Physical Exam Vital Signs: Last Vital Signs Pulse 95 12/13/24 13:55 BP 124/68 12/13/24 13:55 BMI result Body Mass Index 54.5 Const General: cooperative, healthy appearing, comfortable and no acute distress Orientation/consciousness: patient oriented x3 HEENT Head: Yes normal to inspection Neck Neck: Yes normal visual inspection, Yes trachea midline and Yes supple Chest Chest palpation & inspection: normal inspection of the chest Resp Effort & Inspection: normal respiratory effort Auscultation: clear to auscultation bilaterally, no crackles, no rales, no rhonchi and no wheezes Cardio Jugular venous distension: no JVD Palpation: normal PMI Rate: regular rate Rhythm: regular rhythm Heart sounds: S1 normal heart sound present, S2 normal heart sound present, no click, no gallops, no murmurs and no rubs Peripheral pulses: Peripheral pulses 2+ throughout GI Inspection: Yes normal to inspection Palpation (GI): Soft to palpation Auscultation: normal bowel sounds Skin General skin exam: no rashes or lesions noted Neuro General: patient oriented x3 Extrem General: Yes normal to inspection, No no pedal edema and No calf tenderness Psych Appearance: grossly normal Mental Status: mental status grossly normal Speech and movement: Normal speech and movement present Office Procedures EKG Details: EKG today showed Normal Sinus Rhythm, rate 95 beats per minuter, normal MD, [place] [id number], Complete Assessment & Plan Assessment & Plan (1) Paroxysmal atrial fibrillation: Comment: X1 in 2008-follows with Dr. Schulte-no anticoagulation Code(s): I48.0 - Paroxysmal atrial fibrillation Category: Medical Plan: History of paroxysmal AFib without any recurrences. 07/17/2023-Holter study showed baseline normal sinus rhythm with an average heart rate of 86 beats per minute, with rare ventricular and supraventricular ectopies. Patient's symptoms associated with sinus tachycardia. 07/17/2023-echo study showed a normal LV systolic function with an ejection fraction between 60-65%. Continue weight loss management. (2) CAD (coronary artery disease): Code(s): I25.10 - Atherosclerotic heart disease of [place] coronary artery without angina pectoris Category: Medical Plan: Coronary calcium score previously showed coronary artery disease. Most recent LDL improved to 75. Continue high dose statin therapy with an LDL goal less than 70. (3) HTN (hypertension): Code(s): I10 - Essential (primary) hypertension Category: Medical Plan: Blood pressure today is well-controlled. Continue current regimen. Advised monitoring blood pressures at home with a goal less than 130/80. Patient recently diagnosed with low T level and is asking about testosterone therapy. Recommended going to Dr. Gandhi. Advised close monitoring of blood pressures. (4) Obstructive sleep apnea: Comment: uses CPAP-follows with PCP Code(s): G47.33 - Obstructive sleep apnea (adult) (pediatric) Category: Medical Plan: Continue CPAP therapy. Advised heart healthy diet, regular exercise, losing weight, med compliance, and aggressive management of vascular risk factors. Follow up in [address] Schulte. In the interim, patient will call the office with any concerns or change in symptoms. This note was generated using voice recognition software. While every effort has been made to ensure accuracy and proper flight attendant/inflight supervisor, there may be occasional errors that could affect the content or meaning of the described symptoms. Orders: Orders AMB EKG-In Office Today I48.0 - Paroxysmal atrial fibrillation Coding Level of Care Code Est Pt Level 4 (29598) Complex EM visit Add On G2211 Diagnoses Paroxysmal atrial fibrillation I48.0 CAD (coronary artery disease) I25.10 HTN (hypertension) I10 Obstructive sleep apnea G47.33 CPT Codes EKG - CPT: 12927-[id number], Complete ([id number]) Time Spent (min) 31
[2024-12-13 13:55] VITALS: BP 124/68; PULSE 95; BMI 54.5
== END 2024-12-13 14:26 | disposition home or self-care (01) ==
LOC: HO.HCS 13:42
PROVIDERS: PCP Physician Assistant
DX: I48.0 Paroxysmal atrial fibrillation (principal); I25.10 Atherosclerotic heart disease of native coronary artery without angina pectoris; I10 Essential (primary) hypertension; G47.33 Obstructive sleep apnea (adult) (pediatric)
CPT/HCPCS: 93010; 99214

== ENCOUNTER → 2024-12-13 13:41 | Outpatient (BNVA) | payer OTHER, SELFPAY | PROVIDERS: PCP Physician Assistant | DX: I48.0 Paroxysmal atrial fibrillation (principal); I25.10 Atherosclerotic heart disease of native coronary artery without angina pectoris; I10 Essential (primary) hypertension; G47.33 Obstructive sleep apnea (adult) (pediatric) | CPT/HCPCS: 93005 ==

== ENCOUNTER → 2024-12-17 07:46 | Outpatient (BNV) | payer OTHER, SELFPAY | PROVIDERS: PCP Physician Assistant; Visit Provider Psychiatry & Neurology Neurology | DX: G56.01 Carpal tunnel syndrome, right upper limb (principal) | CPT/HCPCS: 95886; 95908 ==

== ENCOUNTER 2024-12-17 07:48 | Outpatient (REF) | payer OTHER, SELFPAY ==
--- OUTSIDE RECORDS SUMMARY | 2024-12-13 23:59 | XMS_ITS | Continuity of Care Document ---
Author Organization [facility] [place] Abrahan lt Address [address] [place] [id number]- Support Name Relationship Address Phone GERDA ACEVEDO [...] Unknown Unavai lable Care Team Providers Care Personal Care Aid Name Role Phone Radha Villeda Primary Care Physician [facility]counter [facility] Date(s): 11/13/24 - 12/13/24 [facility] [place] Adult [address] [place] [address]- Encounter Type: Triage Allergies, Adverse Reactions, Alerts [...] Toxoid Vaccine (oldterm) 04/17/00 Given 1Location History: [facility] [place] employer 2Admin Note: Work Medications Albuterol (Eqv-ProAir HFA) 90 mcg/inh inhalation aerosol 2 puffs, Inhalation, Every 6 hours, PRN Wheezing/Shortness of Breath, # 8.5 Gm, 1 Refills, Maintenance, 06/13/23 8:00:00 AM EST, [facility]/pharmacy #[id number], Partial fill upon patient request if the [...] 1 Refills, Maintenance, 11/28/24 7:48:00 AM EDT, [facility] Pharmacy, 169.4, cm, 11/06/24 12:21:00 EDT, Height Start Date: 11/28/24 Status: Ordered Medication Dispense Status: Completed Quantity: 45.0 Unit: tablet Total Allowed Fills: 2 Fills Dispensed: 0 amlodipine-benazepril 5 mg-10 mg oral capsule 1 capsule, By Mouth, Daily, # 90 capsule, 1 Refills, Maintenance, 02/13/23 8:37:00 PM EDT, [facility] STORE [id number], 90, TAKE 1 CAPSULE BY MOUTH EVERY [...] Refills, Maintenance, 09/30/24 7:16:00 AM EDT, Tablet, [facility] Pharm[facility], Partial fill upon patient request if [...] 9:34:00 AM EDT, Route to Pharmacy Electronically, [facility] Pharmacy, 169.4, cm, 11/06/24 12:21:00 EDT, Height [...] 0 Refills, Maintenance, 10/23/23 4:01:00 PM EDT, [facility] Pharm[facility], Partial fill upon patient request if [...] Active Obstructive sleep apnea, severe 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 Sex Sex Representation Male (finding) Patient Care team information Care Team Personnel Name: Radha Villeda Position: [facility] PCO Associate Professional Member Role: PCP Address: [address] [place] [phone]- Telecom: Care Team Related Persons Name: DIMPLE PERALTA Name: GERDA ACEVEDO Insurance Providers Guarantor name: LISSETT [facility] Information #: 1 Payer: BLUE BENEFIT BBA PPO Payer Identifier: ASHLEY Member Number: [id number] Group Number: [id number] Subscriber Identifier: NA Relationship to Subscriber: self Coverage Type: BLUE CROSS/BLUE SHIELD Coverage Verification Date: NA Telecom: NA Address:
--- OUTSIDE RECORDS SUMMARY | 2024-12-14 23:59 | XMS_ITS | Continuity of Care Document ---
Author Organization [facility] Ab[place]han lt Address [address] [place] [id number]- Support Name Relationship Address Phone GERDA ACEVEDO unrelated friend Unknown Unavail able PERALTA, DIMPLE Personal Relationship Unknown Unavai lable PERALTA, DIMPLE Personal Relationship Unknown Unavai lable PERALTA, IDMPLE Personal Relationship Unknown Unavai lable PERALTA, DIMPLE [...] Unknown Unavai lable Care Team Providers Care Disbursing Agent Name Role Phone Radha Villeda Primary Care Physician Encounter [facility] Date(s): 11/14/24 - 12/14/24 [facility] Adult [address] [place] [address]- Encounter Type: Triage Allergies, Adverse Reactions, Alerts [...] Toxoid Vaccine (oldterm) 04/17/00 Given 1Location History: [facility] [place] employer 2Admin Note: Work Medications Albuterol (Eqv-ProAir HFA) 90 mcg/inh inhalation aerosol 2 puffs, Inhalation, Every 6 hours, PRN Wheezing/Shortness of Breath, # 8.5 Gm, 1 Refills, Maintenance, 06/13/23 8:00:00 AM EST, [facility]/pharmacy #[id number], Partial fill upon patient request if the [...] 1 Refills, Maintenance, 11/28/24 7:48:00 AM EDT, [facility] Pharmacy, 169.4, cm, 11/06/24 12:21:00 EDT, Height Start Date: 11/28/24 Status: Ordered Medication Dispense Status: Completed Quantity: 45.0 Unit: tablet Total Allowed Fills: 2 Fills Dispensed: 0 amlodipine-benazepril 5 mg-10 mg oral capsule 1 capsule, By Mouth, Daily, # 90 capsule, 1 Refills, Maintenance, 02/13/23 8:37:00 PM EDT, [facility] STORE [id number], 90, TAKE 1 CAPSULE BY MOUTH EVERY [...] Refills, Maintenance, 09/30/24 7:16:00 AM EDT, Tablet, [facility] Pharm[facility], Partial fill upon patient request if [...] 9:34:00 AM EDT, Route to Pharmacy Electronically, [facility] Pharm[facility], 169.4, cm, 11/06/24 12:21:00 EDT, Height [...] 0 Refills, Maintenance, 10/23/23 4:01:00 PM EDT, [facility] Pharm[facility], Partial fill upon patient request if [...] Care Team Personnel Name: Radha Villeda Position: [facility] PCO Associate Professional Member Role: PCP Address: [address] [place] [phone]- Telecom: Care Team Related Persons Name: DIMPLE PERALTA Name: GERDA ACEVEDO Insurance Providers Guarantor name: LISSETT [facility] Information #: 1 Payer: BLUE BENEFIT BBA PPO Payer Identifier: ASHLEY Member Number: [id number] Group Number: [id number] Subscriber Identifier: NA Relationship to Subscriber: self Coverage Type: BLUE CROSS/BLUE SHIELD Coverage Verification Date: NA Telecom: NA Address:
--- NOTE | 2024-12-17 07:46 | EMG_ITS ---
Right median and ulnar motor and sensory studies were performed right radial sensory study was performed in EMG needle examination was performed. Impression: Moderate right median neuropathy across carpal tunnel MTDD
== END 2024-12-17 07:49 | disposition home or self-care (01) ==
LOC: HO.NEURO 07:48
PROVIDERS: PCP Physician Assistant
DX: R20.0 Anesthesia of skin (principal); R20.2 Paresthesia of skin; G56.11 Other lesions of median nerve, right upper limb
CPT/HCPCS: 95886; 95909

== ENCOUNTER 2025-01-03 10:45 | Outpatient (AMB) | payer OTHER, SELFPAY ==
--- NOTE | 2025-01-03 10:57 | A.OFFVIS_ITS ---
Vital Signs 01/03/25 10:59 Height 5 ft 10 in Weight 380 lb BMI 54.5 Handedness Right Intake Visit Reasons: New Prob: EMG review RT hand Intake Note: Emerson is a 54 year old right hand dominant man who presents today for a new problem visit to evaluate his EMG of his right hand due to anesthesia of RUE. Patient is interested in discussing surgery. Expresses numbness and tingling in all of the digits of the right hand except his small finger accompanied by pain with lifting. He sleeps with a hand brace but if he forgets to put the brace on before bed he wakes up with his hand contracted and this usually resolves after about 45 minutes but painful when it is happening. 2 months ago he woke up at 4 am with his hand looking like a paw from the contracture and thought his hand was broken with a 9 out of 10 pain. Denies locking of his fingers. 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 EMG/NCS done on 12/17/24 Impression: Moderate right median neuropathy across carpal tunnel Allergies Penicillins Allergy (Severe, Verified 01/03/25 11:05) urticaria cephalexin (From Keflex) Allergy (Intermediate, Verified 01/03/25 11:05) Hives HPI HPI New Prob: EMG review RT hand: Details: Emerson is a 54 year old right hand dominant man who presents today for a new problem visit to evaluate his EMG of his right hand due to anesthesia of RUE. Patient is interested in discussing surgery. Expresses numbness and tingling in all of the digits of the right hand except his small finger accompanied by pain with lifting. He sleeps with a hand brace but if he forgets to put the brace on before bed he wakes up with his hand contracted and this usually resolves after about 45 minutes but painful when it is happening. 2 months ago he woke up at 4 am with his hand looking like a paw from the contracture and thought his hand was broken with a 9 out of 10 pain. Denies locking of his fingers. 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 EMG/NCS done on 12/17/24 Impression: Moderate right median neuropathy across carpal tunnel PFSH Medical History Hypogonadotropic hypogonadism Male hypogonadism History of COVID-19 Obstructive sleep apnea Obesity HTN (hypertension) Paroxysmal atrial fibrillation Surgical History Hx of colonoscopy Hx of foot surgery Family History Father CAD (coronary artery disease) HTN (hypertension) Hyperlipidemia Paternal Grandfather CAD (coronary artery disease) HTN (hypertension) Hyperlipidemia Social History (Updated 01/03/25 @ 11:08 by SAGAR Tobias) Household Members: Family Are you a primary point of care technician to a significant other at home: No Do you presently have visiting nurse or other home services: No Alcohol intake: current Alcohol intake frequency: 3 or more drinks per day Alcohol type: beer Patient Tobacco Use Status: Former Tobacco user Tobacco use type: Cigarette Years Smoked: 2 months Substance Use Type: Marijuana Current occupational status: employed 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 Good APB muscle firing and good finger cross. Vascular: Capillary refill brisk. ROM: Patient can make a fist and extend all their digits. Skin: No lacerations or abrasions noted. General: No ecchymosis. No erythema or evidence of infection. Assessment & Plan Assessment & Plan (1) Right carpal tunnel syndrome: Code(s): G56.01 - Carpal tunnel syndrome, right upper limb Category: Medical Plan 1. Right carpal tunnel syndrome Symptoms intermittent, daily, worse at night I educated the patient about the condition. I discussed both operative and nonoperative treatment options. The patient would like to proceed with surgery. The risks and benefits of operative treatment were discussed with the patient and the patient wishes to proceed with surgery. These risks include, but are not limited to, risk of damage to blood vessels, nerves, tendons, infection, recurrence, incomplete relief of preoperative symptoms, persistent pain, possible need for further surgery, and the risks associated with regional blocks and/or anesthesia. Plan is to take the patient to the operating room at some point in the next few weeks for the following procedures: 1. Right carpal tunnel release under local All of the preoperative paperwork including the consent was discussed today. All of the patient's questions were answered in the clinic today. The patient understands that they will be in contact with our hand frame surgical elastic knitter to discuss scheduling their procedure. Patient denies diabetes, blood thinners, asthma, heart issues, lung issues, kidney issues, or current smoking. Coding Level of Care Code Est Pt Level 4 (50735) Diagnoses Right carpal tunnel syndrome G56.01
[2025-01-03 10:59] VITALS: BMI 54.5
== END 2025-01-03 11:28 | disposition home or self-care (01) ==
LOC: HO.HOS 10:45
PROVIDERS: PCP Physician Assistant
DX: G56.01 Carpal tunnel syndrome, right upper limb (principal)
CPT/HCPCS: 99214

== ENCOUNTER 2025-02-03 08:58 | Day surgery (SDC) | payer OTHER, SELFPAY ==
[2025-02-03 05:41] VITALS: BMI 54.5
[2025-02-03 10:00] VITALS: BP 150/72; PULSE 74; RESP 18; TEMP 36.9; O2SAT 95
--- NOTE | 2025-02-03 10:36 | MHC.SHP ---
Pre-Procedural Eval Section A - 24 Hr Update-Section A only Date of Service: 02/03/25 The patient is an INPATIENT: No Changes since office visit: No Cold of Flu in the past 2 weeks, No New Medical Problems, No Changes in Medication and No Patient answered all questions The patient has been examined within 24 hours of the surgical procedure. The History & Physical has been completed within 30 days and I have reviewed it.: Yes Section B - Complete if H&P > 30 days Chief Complaint: Carpal tunnel syndrome, right upper limb Allergies: Allergies Allergy/AdvReac Type Severity Reaction Status Date / Time Penicillins Allergy Severe urticaria Verified 01/03/25 11:05 cephalexin (From Keflex) Allergy Intermediate Hives Verified 01/03/25 11:05 Plan Diagnosis/Plan: Unchanged I have reviewed the history and physical and performed a pertinent physical examination on my patient. No changes have occurred unless specified. Time Spent With Patient Time: Total time managing care of this patient today ____ minutes.
--- NOTE | 2025-02-03 10:36 | W.PM.OPN ---
Operative Note Operative Note Date of Service: 02/03/25 Narrative: Preop diagnosis: 1. Right Carpal tunnel syndrome Postop diagnosis: same Procedure: 1. Right Carpal tunnel release Surgeon: Paulina Kemp MD Agricultural Extension Educator: Lico SANDOVAL Anesthesia: local block using 1% lidocaine with epinephrine Findings: Thickened transverse carpal ligament. EBL: Less than 5 mL Specimens: None Complications: None Disposition: Brought to recovery room in stable condition Plan: Follow-up for 10-14 days for wound check and suture removal Indications: The patient is a 54 years old, with right carpal tunnel syndrome that has been unresponsive to nonoperative management. The risks and benefits of operative treatment including but not limited to risk of damage to blood vessels, nerves, tendons, infection, persistent pain, persistent symptoms, or possible need for additional surgery were discussed with the patient and the patient wishes to proceed with surgery. Procedure: Once consent was obtained a local block was performed using a combination of 1% lidocaine with epinephrine. The patient was then brought back to the operating suite and placed on the operative table in supine position. The right upper extremity was prepped and draped in a standard surgical fashion. Once assured that we had a good block, a 2.0 cm longitudinal incision was made centered over the carpal tunnel. The incision was made through the skin to the subcutaneous tissues using a #15 blade. Dissection was made down to the level of the transverse carpal ligament with care being taken to protect the palmar cutaneous nerve. Once the transverse carpal ligament was clearly visualized, a longitudinal incision was made in the transverse carpal ligament 1st using a #15 blade, then using tenotomy scissors under direct visualization. Care was taken to look for and protect the motor branch of the median nerve when seen in this area. Once satisfied with our carpal tunnel release the wound was copiously irrigated with normal saline and hemostasis was obtained with a brief period of local pressure. The skin edges were reapproximated with some 5.0 nylon suture material and a sterile dressing was applied. The patient appears to have tolerated the procedure well and with no complications. All digits were well vascularized at the conclusion of the case.
[2025-02-03 11:22] VITALS: BP 141/75; PULSE 82; RESP 18; O2SAT 98
== END 2025-02-03 11:42 | disposition home or self-care (01) ==
PROVIDERS: PCP Physician Assistant; Visit Provider Orthopaedic Surgery
PROC: (CPT 64721; principal; 2025-02-03 13:10)
DX: G56.01 Carpal tunnel syndrome, right upper limb (principal); R20.0 Anesthesia of skin; R20.2 Paresthesia of skin; I10 Essential (primary) hypertension; I48.0 Paroxysmal atrial fibrillation; G47.33 Obstructive sleep apnea (adult) (pediatric); Z88.0 Allergy status to penicillin; Z88.1 Allergy status to other antibiotic agents
CPT/HCPCS: 64721; J0165; J2003

== ENCOUNTER → 2025-02-03 08:58 | Outpatient (BNV) | payer OTHER, SELFPAY | PROVIDERS: PCP Physician Assistant; Visit Provider Orthopaedic Surgery | DX: G56.01 Carpal tunnel syndrome, right upper limb (principal) | CPT/HCPCS: 64721 ==

== ENCOUNTER 2025-02-14 13:52 | Outpatient (AMB) | payer OTHER, SELFPAY ==
[2025-02-14 13:53] VITALS: BMI 54.5
--- NOTE | 2025-02-14 13:53 | A.OFFVIS_ITS ---
Vital Signs 02/14/25 13:53 Height 5 ft 10 in Weight 380 lb BMI 54.5 Intake Visit Reasons: PO RT CTR 02/03/25 AR Intake Note: Emerson is a 54 year old right hand dominant male who presents today for a Post- Operative Visit status post Right Carpal Tunnel Release performed by Dr. Kemp on 02/03/25. Patient reports he is doing well. Denies numbness, tingling, finger locking. Sutures removed and steri strips applied. Allergies Penicillins Allergy (Severe, Verified 02/14/25 13:53) urticaria cephalexin (From Keflex) Allergy (Intermediate, Verified 02/14/25 13:53) Hives HPI HPI PO RT CTR 02/03/25 AR: Details: Emerson is a 54 year old right hand dominant male who presents today for a Post- Operative Visit status post Right Carpal Tunnel Release performed by Dr. Kemp on 02/03/25. Patient reports he is doing well. Denies numbness, tin gling, finger locking. Sutures removed and steri strips applied. PFS Medical History Hypogonadotropic hypogonadism Male hypogonadism History of COVID-19 Obstructive sleep apnea Obesity HTN (hypertension) Paroxysmal atrial fibrillation Surgical History Hx of colonoscopy Hx of foot surgery Family History Father CAD (coronary artery disease) HTN (hypertension) Hyperlipidemia Paternal Grandfather CAD (coronary artery disease) HTN (hypertension) Hyperlipidemia Social History (Updated 01/03/25 @ 11:08 by SAGAR Tobias) Household Members: Family Are you a primary respiratory care technician to a significant other at home: No Do you presently have visiting nurse or other home services: No Alcohol intake: current Alcohol intake frequency: 3 or more drinks per day Alcohol type: beer Comment: counts correct Patient Tobacco Use Status: Former Tobacco user Tobacco use type: Cigarette Years Smoked: 2 months Substance Use Type: Marijuana Current occupational status: employed 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 Neuro: Normal sensation of the tips of all digits of the right hand at this time Vascular: Cap refill brisk Pain: No tenderness to palpation about the incision site on volar right wrist No pain with range of motion of the right hand ROM: Patient is able to make a closed fist and extend all digits of the right hand fully and without difficulty Skin: Well approximated and well healing incision site noted on the volar right wrist No lacerations or abrasions. General: No ecchymosis, erythema, or evidence of infection. Psych: Appears grossly normal Affect normal Attitude cooperative Assessment & Plan Assessment & Plan (1) Right carpal tunnel syndrome: Code(s): G56.01 - Carpal tunnel syndrome, right upper limb Category: Medical Plan 1. Status post right carpal tunnel release DOS 02/03/2025 With good symptom resolution postoperatively Patient appears to be recovering well from his surgery Patient is educated about the typical recovery course No acute follow-up indicated, as patient appears to be recovering quite well Patient understands this in his amenable to this plan Follow-up as needed Coding Level of Care Code Global (80201) Diagnoses Right carpal tunnel syndrome G56.01
== END 2025-02-14 14:02 | disposition home or self-care (01) ==
LOC: HO.HOS 13:53
PROVIDERS: PCP Physician Assistant
DX: G56.01 Carpal tunnel syndrome, right upper limb (principal)
CPT/HCPCS: 99024